=== PATIENT | male | born 1945 | race Caucasian/White ===

== ENCOUNTER → 2019-08-06 11:52 | Outpatient (CLI) | payer MEDICARE, OTHER, SELFPAY ==
[2019-08-06 12:18] LABS: Add Manual Diff / Slide Review NO; Basophils Absolute Auto 0 /uL (0-100); Basophils Percent Auto 0.5 % (0-2); Eosinophils Absolute Auto 200 /uL (0-450); Eosinophils Percent Auto 3.4 % (2-4); Hematocrit 42.2 % (41-53); Hemoglobin 14.3 g/dL (13.5-17.5); Lymphocytes Absolute Auto 1500 /uL (1100-4500); Lymphocytes Percent Auto 32.7 % (25-40); Mean Corpuscular HGB Conc 33.8 % (30-36); Mean Corpuscular Hemoglobin 32.6 PG (26-34); Mean Corpuscular Volume 96.3 fL (80-100); Monocytes Absolute Auto 600 /uL (0-900); Monocytes Percent Auto 13.3 % (3-14); Neutrophils Absolute Auto 2300 /uL (1500-7000); Neutrophils Percent Auto 50.1 % (50-75); Platelet Count 234 X10^3/uL (150-400); Red Blood Cell Count 4.38 X10^6/uL (4.5-5.9); Red Cell Distribution Width 14.7 % (11.6-14.8); White Blood Cell Count 4.6 X10^3/uL (4.5-11.0)
[2019-08-06 12:56] LABS: Alanine Aminotransferase 35 IU/L (21-72); Albumin 4.2 g/dL (3.5-5.0); Albumin Globulin Ratio 1.5 (1.0-2.8); Alkaline Phosphatase 56 U/L (38-126); Aspartate Aminotransferase 35 IU/L (17-59); BUN Creatinine Ratio 32.5 (6-22); Bilirubin Total 0.5 mg/dL (0.2-1.3); Blood Urea Nitrogen 26 mg/dL (9-20); Calcium 9.2 mg/dL (8.4-10.2); Carbon Dioxide 27 mmol/L (22-32); Chloride 105 mmol/L (98-107); Cholesterol 170 mg/dL (140-199); Estimated Glomerular Filt Rate > 60.0 mL/min (>60); Globulin 2.8 g/dL (1.7-4.1); Glucose 106 mg/dL (80-110); HDL Cholesterol 52 mg/dL (40-60); HEMOLYSIS < 15 (0-50); LDL Cholesterol Calculated 109 mg/dL (<100); Potassium 4.8 mmol/L (3.4-5.1); Sodium 140 mmol/L (137-145); Triglycerides 44 mg/dL (35-150)
== END ==
PROVIDERS: PCP Family Medicine; Visit Provider Family Medicine
DX: E66.9 Obesity, unspecified (principal); K21.9 Gastro-esophageal reflux disease without esophagitis; R73.03 Prediabetes; Z83.3 Family history of diabetes mellitus
CPT/HCPCS: 36415; 80053; 80061; 84443; 85025

== ENCOUNTER → 2019-08-09 09:19 | Outpatient (CLI) | payer MEDICARE, OTHER, SELFPAY ==
[2019-08-09 10:36] LABS: Vitamin B12 592 pg/mL (239-931)
== END ==
PROVIDERS: PCP Family Medicine; Visit Provider Family Medicine
DX: M85.80 Other specified disorders of bone density and structure, unspecified site (principal); E66.9 Obesity, unspecified; R73.03 Prediabetes; Z83.3 Family history of diabetes mellitus
CPT/HCPCS: 82306; 82607

== ENCOUNTER → 2019-12-22 10:31 | Outpatient (CLI) | payer MEDICARE, OTHER, SELFPAY ==
[2019-12-23 14:44] LABS: RPR Screen Non Reactive (Non Reactive)
== END ==
PROVIDERS: PCP Family Medicine; Referring Provider Family Medicine; Visit Provider Family Medicine
DX: G31.84 Mild cognitive impairment of uncertain or unknown etiology (principal); H91.90 Unspecified hearing loss, unspecified ear
CPT/HCPCS: 36415; 83090; 86592

== ENCOUNTER → 2020-03-20 09:58 | Outpatient (CLI) | payer MEDICARE, OTHER, SELFPAY ==
[2020-03-20 11:06] LABS: BUN Creatinine Ratio 18.4 (6-22); Blood Urea Nitrogen 18 mg/dL (9-20); Calcium 9.3 mg/dL (8.4-10.2); Carbon Dioxide 27 mmol/L (22-32); Chloride 106 mmol/L (98-107); Estimated Glomerular Filt Rate > 60.0 mL/min (>60); Glucose 107 mg/dL (80-110); HEMOLYSIS < 15 (0-50); Potassium 4.6 mmol/L (3.4-5.1); Sodium 139 mmol/L (137-145)
[2020-03-21 10:08] LABS: Insulin Level Total 18.5 uIU/mL (2.6-24.9)
== END ==
PROVIDERS: PCP Family Medicine; Referring Provider Family Medicine; Visit Provider Family Medicine
DX: E66.9 Obesity, unspecified (principal); R73.03 Prediabetes; Z83.3 Family history of diabetes mellitus
CPT/HCPCS: 36415; 80048; 83525

== ENCOUNTER → 2021-10-26 11:03 | Outpatient (CLI) | payer MEDICARE, OTHER, SELFPAY ==
[2021-10-26 12:25] LABS: Alanine Aminotransferase 32 IU/L (<50); Albumin Globulin Ratio 1.4 (1.0-2.8); Alkaline Phosphatase 51 U/L (38-126); Aspartate Aminotransferase 33 IU/L (17-59); BUN Creatinine Ratio 24.5 (6-22); Bilirubin Total 0.5 mg/dL (0.2-1.3); Blood Urea Nitrogen 23 mg/dL (9-20); Calcium 9.5 mg/dL (8.4-10.2); Carbon Dioxide 30 mmol/L (22-32); Chloride 105 mmol/L (98-107); Cholesterol 162 mg/dL (140-199); Estimated Glomerular Filt Rate > 60.0 mL/min (>60); Globulin 2.8 g/dL (1.7-4.1); Glucose 114 mg/dL (80-110); HDL Cholesterol 60 mg/dL (40-60); HEMOLYSIS < 15 (0-50); LDL Cholesterol Calculated 92 mg/dL (<100); Potassium 4.5 mmol/L (3.4-5.1); Sodium 140 mmol/L (137-145); Total Protein 6.8 g/dL (6.3-8.2); Triglycerides 48 mg/dL (35-150)
[2021-10-26 12:42] LABS: Vitamin D 25 Hydroxy (D3) 67.7 ng/mL (30.0-100.0)
[2021-10-26 12:56] LABS: TSH w/ Reflex to FT4 1.47 uIU/mL (0.47-4.68)
== END ==
PROVIDERS: PCP Family Medicine; Referring Provider Family Medicine; Visit Provider Family Medicine
DX: E66.9 Obesity, unspecified (principal); I10 Essential (primary) hypertension; R73.03 Prediabetes
CPT/HCPCS: 36415; 80053; 80061; 82306; 84443

== ENCOUNTER → 2021-11-05 09:16 | Outpatient (CLI) | payer MEDICARE, OTHER, SELFPAY ==
--- NOTE | 2021-11-06 09:08 | PM.TREADMILL ---
Cardiac Stress Test Report Referral & Results Date Patient Seen: 11/06/21 Time Patient Seen: 09:00 Requesting provider: Crissy Mathis Indication: Chest discomfort Rest ECG: Normal sinus rhythm Procedure Note: After both written and verbal informed consent the patient had an IV started by the diagnostic imaging RN, and then was hooked up to the treadmill monitoring system. The Lexiscan material, and then the Cardiolite tracer, were administered sequentially. An additional 3 min was spent monitoring the patient while supine on the gurney. The patient had a normal response to all infused materials. Impression: Successful Melva protocol. Perfusion imaging pending. Please note: Actual ECG tracings can be found in the PACS system.
--- NOTE | 2021-11-07 05:33 | DI.NM.S_ITS ---
DATE OF SERVICE: PROCEDURE: Pharmacological perfusion study. DATE OF STUDY: November 05, 2021 INDICATIONS: Chest pain, palpitation, hypertension. RADIOPHARMACEUTICAL: 24.0 millicurie technetium-99m Myoview IV was injected at stress and 24.4 millicurie technetium-99m Myoview IV was injected at rest. CARDIAC STRESS: The patient underwent IV Lexiscan perfusion study under the supervision of an attending staff. The patient remained hemodynamically stable. No significant symptoms. Baseline rhythm was sinus with mild sinus bradycardia. During stress, no convincing ischemic changes seen. No new significant arrhythmias seen. RAW DATA: There is a increased subdiaphragmatic activity. GATED STUDY: Stress LV ejection fraction 82 percent. I do not see any obvious wall motion abnormalities. Resting end-diastolic volume 94 mL. TID ratio 1.27. However, this is a pharmacological perfusion study. Lung/heart ratio 0.29, which is within normal limits. MYOCARDIAL PERFUSION SCAN: There are no prone images. Stress supine and resting supine images were compared to each other. Resting supine images revealed small size, mildly decreased perfusion of basal inferior wall. However, basal inferior wall was normal during stress supine images. However, patient has moderate size, moderate reversible defect involving mid to distal anterior wall extending into the distal anterolateral wall. CONCLUSION: This is an abnormal myocardial perfusion study with moderate reversible ischemia of mid to distal anterior wall extending into the distal anterior lateral wall. Overall preserved left ventricular function. Consider left heart catheterization for further ischemic evaluation and management. findings were reported to Dr. Priec. Lazarus Yanes - TOÑO/ivan/ludin doc#: [id number]/job#: [id number] dd: 11/06/2021 18:03:00 dt: 11/07/2021 05:00:00 DICTATING MD/COPIES TO: Dean Mackay MD; Dr Price COPIES MNE: JAMES; ; Dr Price
== END ==
PROVIDERS: PCP Family Medicine; Referring Provider Family Medicine; Visit Provider Family Medicine
DX: R07.89 Other chest pain (principal); Z20.822 Contact with and (suspected) exposure to COVID-19
CPT/HCPCS: 78452; 87635; 93016; 93017; 93018; C9803; A9502; J2785

== ENCOUNTER → 2021-11-05 11:05 | Outpatient (CLI) | payer MEDICARE, OTHER, SELFPAY ==
[2021-11-05 13:57] LABS: COVID19 -Nasal RAPID Negative (Negative)
== END ==
PROVIDERS: PCP Family Medicine; Referring Provider Family Medicine Sleep Medicine; Visit Provider Family Medicine Sleep Medicine
DX: Z20.822 Contact with and (suspected) exposure to COVID-19 (principal)
CPT/HCPCS: 87635

== ENCOUNTER 2021-11-15 16:59 | Observation (INO) | payer MEDICARE, OTHER, SELFPAY ==
[2021-11-15] VITALS (59 sets, daily range): BP systolic 91–133; BP diastolic 60–90; PULSE 72–147; RESP 17–49; TEMP 36.4; O2SAT 79–99; BMI 33.5
--- NOTE | 2021-11-15 17:13 | DI.RAD.S_ITS ---
PROCEDURE: XR CHEST 1V INDICATIONS: chest pain TECHNIQUE: One view of the chest was acquired. COMPARISON: [facility], , CHEST 2 VIEW, 11/20/2016, 17:34. FINDINGS: Surgical changes and devices: None. Lungs and pleura: Lungs are clear. No pleural effusions or pneumothorax. Mediastinum: Mediastinal contours appear normal. Heart size is enlarged. Bones and chest wall: No suspicious bony lesions. Overlying soft tissues appear unremarkable. IMPRESSION: Cardiomegaly without vascular congestion Approved by: Alex Bernal M.D. on 11/15/2021 at 17:03
[2021-11-15 17:28] LABS: Add Manual Diff / Slide Review NO; Basophils Absolute Auto 0 /uL (0-100); Basophils Percent Auto 0.7 % (0-2); Eosinophils Absolute Auto 100 /uL (0-450); Eosinophils Percent Auto 1.6 % (2-4); Lymphocytes Absolute Auto 1300 /uL (1100-4500); Lymphocytes Percent Auto 25.5 % (25-40); Mean Corpuscular HGB Conc 34.1 % (30-36); Mean Corpuscular Hemoglobin 32.3 PG (26-34); Mean Corpuscular Volume 94.6 fL (80-100); Monocytes Absolute Auto 700 /uL (0-900); Monocytes Percent Auto 13.4 % (3-14); Neutrophils Absolute Auto 3000 /uL (1500-7000); Neutrophils Percent Auto 58.8 % (50-75); Platelet Count 256 X10^3/uL (150-400); Red Blood Cell Count 4.34 X10^6/uL (4.5-5.9); Red Cell Distribution Width 14.5 % (11.6-14.8)
--- NOTE | 2021-11-15 17:35 | ED_ITS ---
HPI - Arrhythmia/Palpitations General Chief Complaint: Arrhythmia/Palpitations Stated Complaint: RAPID HEARTRATE Time Seen by Provider: 11/15/21 17:20 Source: patient Mode of arrival: Ambulatory Limitations: no limitations History of Present Illness HPI narrative: Patient is a 76 year old male. History of high blood pressure. No prior history of arrhythmias. Had a nuclear stress test done last week ordered by his primary doctor. States that he was at the dentist yesterday and was told that his heart rate was elevated. He has no symptoms. He was instructed to come to the emergency department. Related Data Home Medications Medication Instructions Recorded Confirmed doxycycline hyclate 20 mg tablet 20 mg PO Q12H #0 09/18/17 09/14/21 aspirin 325 mg tablet 325 mg PO DAILY 04/09/21 09/14/21 famotidine 20 mg tablet 20 mg PO DAILY 04/09/21 09/14/21 melatonin 5 mg capsule 10 mg PO .HS PRN cap 04/09/21 09/14/21 Previous Rx's Medication Instructions Recorded tamsulosin 0.4 mg capsule 0.8 mg PO DAILY #180 cap 05/23/21 amlodipine 5 mg tablet 5 mg PO DAILY #90 tab 07/27/21 metoprolol succinate 25 mg 25 mg PO DAILY #30 tab 11/07/21 tablet,extended release 24 hr rosuvastatin 5 mg tablet 5 mg PO DAILY #30 tab 11/07/21 Allergies Allergy/AdvReac Type Severity Reaction Status Date / Time No Known Drug Allergies Allergy Verified 11/15/21 17:14 Review of Systems Review of Systems ROS Unobtainable: All systems reviewed & are unremarkable except as noted in HPI and below Constitutional Constitutional: Denies fever(s) and Denies headache(s) ENT Ears, Nose, Mouth, and Throat: Denies headache(s) Cardiovascular Cardiovascular: Denies chest pain, Reports rapid heart rate, Denies lightheadedness and Denies dyspnea Respiratory Respiratory: Denies cough and Denies dyspnea Gastrointestinal Gastrointestinal: Denies abdominal pain, Denies nausea and Denies vomiting Genitourinary Genitourinary: Reports system reviewed and no additional complaints, except as documented Integumentary/Breasts Skin/Breast: Reports system reviewed and no additional complaints, except as documented Neurologic Neurologic: Denies headache(s) Psychiatric Psychiatric: Reports system reviewed and no additional complaints, except as documented Hematologic/Lymphatic On Anticoagulants: No 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) Elevated PSA Gastroesophageal reflux disease (09/13/16) Lumbosacral radiculopathy at L5 (09/13/16) Mild cognitive impairment Obstructive sleep apnea syndrome (09/26/17) Osteopenia Prostate cancer Surgical History (Updated 02/10/18 @ 06:11 by Conversion Provider) Status post tonsillectomy and adenoidectomy Family History (Updated 12/28/19 @ 17:54 by Crissy Mathis DO) Sister Type 1 diabetes Social History Smoking Status: Never smoker Smoking Status: Never smoker alcohol intake frequency: holidays/special occasions only Substance Use Type: does not use Exam Initial Vital Signs Initial Vital Signs: Vital Signs Pulse Rate 146 H 11/15/21 17:09 Respiratory Rate 29 H 11/15/21 17:09 Pulse Oximetry 98 11/15/21 17:09 Const General: cooperative, healthy appearing and comfortable HENWA Head: normal to inspection and normocephalic Eyes General: appearance normal, both eyes and all related structures Neck Neck: normal visual inspection Chest Chest: normal inspection of the chest Resp Effort & Inspection: normal respiratory effort Auscultation: clear to auscultation bilaterally Cardio Rate: tachycardic Rhythm: regular rhythm GI Inspection: normal to inspection Skin General: no rashes or lesions noted Neuro General: patient alert, patient awake, patient oriented x3 and moves all extremities Extrem General: normal to inspection and capillary refill normal Psych Appearance: grossly normal and well kempt Scores GCS Dustin coma scale eye opening: Spontaneous [place] coma scale verbal response: Orientated [place] coma scale motor response: Obey commands [place] coma scale total score: 15 Course Orders Ordered: ED Orders 11/15/21 17:13 XR chest 1V Stat EKG-12 Lead Stat 11/15/21 17:18 Complete Blood Count AUTO DIFF Stat Comprehensive Metabolic Panel Stat Lipase Stat Magnesium Stat Partial Thromboplastin Time Stat Prothrombin Time INR Stat TSH [Thyroid Stimulating Hormone] Stat Troponin & CK Cardiac Panel Stat Diltiazem HCl 125 mg/ Dextrose 125 mls @ 5 mls/hr IV TITRATE DREW; Protocol Last Titration: 11/15/21 19:15 Dose: 15 mg/hr, 15 mls/hr Documented by: Titration: 11/15/21 18:57 Dose: 10 mg/hr, 10 mls/hr Documented by: Admin: 11/15/21 18:31 Dose: 5 mg/hr, 5 mls/hr Documented by: PIPE Discontinued Medications Diltiazem HCl (Diltiazem 5 Mg/Ml Sdv) 10 mg IV NOW ONE Stop: 11/15/21 18:26 Last Admin: 11/15/21 18:31 Dose: 10 mg Documented by: PIPE Metoprolol Tartrate (Metoprolol Tartrate 5 Mg/5 Ml Inj) 5 mg IV NOW ONE Stop: 11/15/21 17:37 Last Admin: 11/15/21 17:48 Dose: 5 mg Documented by: [place] Vital Signs Vital signs: Vital Signs - 8 hr 11/15/21 17:09 11/15/21 17:10 11/15/21 17:14 Temperature 97.6 F Pulse Rate 146 H 147 H 147 H Respiratory Rate 29 H 21 20 Blood Pressure 114/67 114/67 Pulse Oximetry 98 98 99 11/15/21 17:30 11/15/21 17:31 11/15/21 18:00 Temperature Pulse Rate 146 H 146 H 141 H Respiratory Rate 25 H 28 H 27 H Blood Pressure 132/75 107/80 Pulse Oximetry 96 96 97 11/15/21 18:15 11/15/21 18:30 11/15/21 18:33 Temperature Pulse Rate 140 H 140 H 140 H Respiratory Rate 23 25 H 26 H Blood Pressure 110/78 109/78 117/76 Pulse Oximetry 95 96 97 11/15/21 18:45 11/15/21 19:00 11/15/21 19:05 Temperature Pulse Rate 140 H 140 H 141 H Respiratory Rate 24 22 25 H Blood Pressure 109/73 113/73 Pulse Oximetry 96 94 96 11/15/21 19:06 11/15/21 19:10 11/15/21 19:15 Temperature Pulse Rate 141 H 141 H 141 H Respiratory Rate 27 H 25 H 28 H Blood Pressure 107/70 111/73 115/76 Pulse Oximetry 96 95 95 MDM - Arrhythmia/Palpitations Lab Data Result diagrams: 11/15/21 17:18 11/15/21 17:18 Labs: Lab Results 11/15/21 11/15/21 11/15/21 Range/Units 17:18 17:18 17:18 WBC 5.0 (4.5-11.0) X10^3/uL RBC 4.34 L (4.5-5.9) X10^6/uL Hgb 14.0 (13.5-17.5) g/dL Hct 41.0 (41-53) % MCV 94.6 (80-100) fL MCH 32.3 (26-34) PG MCHC 34.1 (30-36) % RDW 14.5 (11.6-14.8) % Plt Count 256 (150-400) X10^3/uL Neut % (Auto) 58.8 (50-75) % Lymph % (Auto) 25.5 (25-40) % [place] % (Auto) 13.4 (3-14) % Eos % (Auto) 1.6 L (2-4) % Baso % (Auto) 0.7 (0-2) % Neut # (Auto) 3000 (3910-2218) /uL Lymph # (Auto) 1300 (4339-2542) /uL [place] # (Auto) 700 (0-900) /uL Eos # (Auto) 100 (0-450) /uL Baso # (Auto) 0 (0-100) /uL PT 12.3 (10.1-12.7) SECONDS INR 1.1 (0.9-1.3) APTT 32 (26.4-36.2) SECONDS Sodium 141 (137-145) mmol/L Potassium 4.3 (3.4-5.1) mmol/L Chloride 109 H (98-107) mmol/L Carbon Dioxide 27 (22-32) mmol/L BUN 22 H (9-20) mg/dL Creatinine 0.93 (0.66-1.25) mg/dL Estimated GFR > 60.0 (>60) mL/min BUN/Creatinine Ratio 23.7 H (6-22) Glucose 110 (80-110) mg/dL Calcium 9.5 (8.4-10.2) mg/dL Magnesium 2.0 (1.6-2.3) mg/dL Total Bilirubin 0.4 (0.2-1.3) mg/dL AST 32 (17-59) IU/L ALT 30 (<50) IU/L Alkaline Phosphatase 51 (38-126) U/L Total Creatine Kinase 128 (55-170) U/L CK-MB (CK-2) 3.22 H (<2.37) ng/mL CK-MB (CK-2) Rel Index 2.5 (1.5-5.0) % Troponin I 0.073 H (0.01-0.034) ng/mL Total Protein 7.2 (6.3-8.2) g/dL Albumin 4.1 (3.5-5.0) g/dL Globulin 3.1 (1.7-4.1) g/dL Albumin/Globulin Ratio 1.3 (1.0-2.8) Lipase 96 (23-300) U/L Imaging Data Chest x-ray: Radiologist's Impresson: [address] [address] XRay Report Signed Patient: Lazarus Yanes MR#: [id number] : 1945 Acct:[id number] Age/Sex: 76 / M Date of Service: 11/15/21 Loc: ED Accession Number: [id number] ?? Procedure: XR chest 1V Ordering Provider: Nabil Alexander D.O. PROCEDURE:? XR CHEST 1V ? INDICATIONS:? chest pain ? TECHNIQUE:? One view of the chest was acquired.? ? COMPARISON:? [facility], , CHEST 2 VIEW, 11/20/2016, 17:34. ? FINDINGS:? ? Surgical changes and devices:? None.? ? Lungs and pleura:? Lungs are clear.? No pleural effusions or pneumothorax.? ? Mediastinum:? Mediastinal contours appear normal.? Heart size is enlarged.? ? Bones and chest wall:? No suspicious bony lesions.? Overlying soft tissues appear unremarkable.? ? IMPRESSION:? ? Cardiomegaly without vascular congestion ? ? ? Approved by: Alex Bernal M.D. on 11/15/2021 at 17:03? ECG Data Attestation: I personally reviewed and interpreted this ECG as follows: Interpretation: A flutter Ventricular rate 148 Normal axis Normal QRS Normal QTC Nonspecific ST T wave changes MDM Narrative Medical decision making narrative: Patient not on anticoagulation. Had a nuclear stress test done 1 week ago the did not show any signs of AFib/flutter. Patient has no symptoms. Not a candidate for cardioversion. EKG consistent with a flutter with 2-1 block. Patient was given metoprolol without any improvement of heart rate. Was started on a diltiazem drip with minimal if any improvement as well. Discussed case with hospitalist. Will need to admit for rate control. Discussed this with the patient as well. He expressed understanding agreement. Critical Care Time Critical Care Time Critical Care Time: Yes Total Critical Care Time: 35 Attestation: The high probability of a clinically significant, sudden or life threatening deterioration of the cardiovascular system(s) required my full and direct attention, intervention and personal management. The aggregate critical care time was [35 minutes. This time is in addition to time spent performing reported procedures but includes the following: [x] Data Review and interpretation [x] Patient assessment and monitoring of vital signs [x] Documentation [x] Medication orders and management Discharge Plan Departure Patient Disposition: Admitted As Inpatient Clinical Impression: Atrial flutter with rapid ventricular response
[2021-11-15 17:36] LABS: INR 1.1 (0.9-1.3); Prothrombin Time 12.3 SECONDS (10.1-12.7)
[2021-11-15 17:39] LABS: PTT Partial Thromboplastin Tim 32 SECONDS (26.4-36.2)
[2021-11-15 17:41] LABS: Alanine Aminotransferase 30 IU/L (<50); Albumin 4.1 g/dL (3.5-5.0); Albumin Globulin Ratio 1.3 (1.0-2.8); Alkaline Phosphatase 51 U/L (38-126); Aspartate Aminotransferase 32 IU/L (17-59); BUN Creatinine Ratio 23.7 (6-22); Bilirubin Total 0.4 mg/dL (0.2-1.3); Blood Urea Nitrogen 22 mg/dL (9-20); Calcium 9.5 mg/dL (8.4-10.2); Carbon Dioxide 27 mmol/L (22-32); Chloride 109 mmol/L (98-107); Creatine Kinase 128 U/L (55-170); Estimated Glomerular Filt Rate > 60.0 mL/min (>60); Globulin 3.1 g/dL (1.7-4.1); Glucose 110 mg/dL (80-110); HEMOLYSIS < 15 (0-50); Lipase 96 U/L (23-300); Potassium 4.3 mmol/L (3.4-5.1); Sodium 141 mmol/L (137-145); Total Protein 7.2 g/dL (6.3-8.2)
[2021-11-15] MEDS: METOPROLOL TARTRATE 5 MG/5 ML INJ IV ×2 (17:48→21:24)
[2021-11-15 17:52] LABS: Troponin I 0.073 ng/mL (0.01-0.034)
[2021-11-15 17:56] LABS: CKMB % Relative Index 2.5 % (1.5-5.0); Creatine Kinase MB 3.22 ng/mL (<2.37)
[2021-11-15] MEDS: dilTIAZem 5 MG/ML SDV 10 MG IV (18:31)
[2021-11-15] MEDS: dilTIAZem 125 MG in DEXTROSE 5 % IN WATER 100 ML IV (18:31)
[2021-11-15 20:21] LABS: Thyroid Stimulating Hormone 2.22 uIU/mL (0.47-4.68)
[2021-11-15 20:27] LABS: COVID19 -Nasal RAPID Negative (Negative)
--- NOTE | 2021-11-15 20:36 | P.HP_ITS ---
History of Present Illness History of Present Illness Date Patient Seen: 11/15/21 Time Patient Seen: 20:30 Chief complaint: RAPID HEARTRATE Narrative: Mr. Yanes is a 76M with PMH HTN, BPH who presents with tachycardia. He has recently noted being more fatigued and short of breath than usual. He has had an outpatient stress test that was abnormal and he has been referred to cardiology for consideration of angiogram. He states he was at the dentist yesterday and was told he was tachycardic. He denies feeling chest pain, shortness of breath, palpitations, dizziness, or any other symptoms. He was recommended to come to the ED. He decided to come today. In the ED workup was done, he was noted to have a heart rate in the 140s, respiratory rate in the 20s. EKG showed atrial flutter with 2:1 conduction. Labs notable for WBC 5.0, creatinine 0.93. INR 1.1. Troponin 0.073. Chest xray showed cardiomegaly. He was given metoprolol with no improvement in his heart rate. He was started on diltiazem and the drip was increased to 15mg/hr and he was admitted for further treatment. 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) Elevated PSA Gastroesophageal reflux disease (09/13/16) Lumbosacral radiculopathy at L5 (09/13/16) Mild cognitive impairment Obstructive sleep apnea syndrome (09/26/17) Osteopenia Prostate cancer Surgical History Status post tonsillectomy and adenoidectomy Family & Social History Family History Sister Type 1 diabetes Safety & Behavioral: Feels Safe in Current Yes Environment Been Physically Hurt or No Threatened By a Person Tobacco & Substance use: Smoking Status Never smoker alcohol intake frequency holiday/special occasion Substance Use Type does not use Meds Home Medications and Allergies Home Medications Medication Instructions Recorded Confirmed Type doxycycline hyclate 20 mg tablet 20 mg PO Q12H #0 09/18/17 09/14/21 History aspirin 325 mg tablet 325 mg PO DAILY 04/09/21 09/14/21 History famotidine 20 mg tablet 20 mg PO DAILY 04/09/21 09/14/21 History melatonin 5 mg capsule 10 mg PO .HS PRN cap 04/09/21 09/14/21 History tamsulosin 0.4 mg capsule 0.8 mg PO DAILY #180 cap 05/23/21 09/14/21 Rx amlodipine 5 mg tablet 5 mg PO DAILY #90 tab 07/27/21 09/14/21 Rx metoprolol succinate 25 mg 25 mg PO DAILY #30 tab 11/07/21 11/07/21 Rx tablet,extended release 24 hr rosuvastatin 5 mg tablet 5 mg PO DAILY #30 tab 11/07/21 11/07/21 Rx Allergies Allergy/AdvReac Type Severity Reaction Status Date / Time No Known Drug Allergies Allergy Verified 11/15/21 17:14 Review of Systems Review of Systems Narrative: 14 systems reviewed and negative aside from HPI Exam Vital Signs (past 8 hours): - 11/15/21 18:45 11/15/21 19:00 11/15/21 19:05 Pulse Rate 140 H 140 H 141 H Respiratory Rate 24 22 25 H Blood Pressure 109/73 113/73 Pulse Oximetry 96 94 96 11/15/21 19:06 11/15/21 19:10 11/15/21 19:15 Pulse Rate 141 H 141 H 141 H Respiratory Rate 27 H 25 H 28 H Blood Pressure 107/70 111/73 115/76 Pulse Oximetry 96 95 95 11/15/21 19:20 11/15/21 19:25 11/15/21 19:30 Pulse Rate 141 H 141 H 142 H Respiratory Rate 29 H 22 23 Blood Pressure 115/74 104/74 108/70 Pulse Oximetry 97 96 96 11/15/21 19:35 11/15/21 19:40 11/15/21 19:45 Pulse Rate 141 H 141 H 142 H Respiratory Rate 26 H 23 22 Blood Pressure 110/73 110/78 113/71 Pulse Oximetry 97 97 96 11/15/21 19:50 11/15/21 19:55 11/15/21 20:00 Pulse Rate 142 H 141 H 140 H Respiratory Rate 25 H 26 H 31 H Blood Pressure 105/60 93/61 118/73 Pulse Oximetry 96 96 97 11/15/21 20:05 11/15/21 20:10 11/15/21 20:15 Pulse Rate 140 H 141 H 140 H Respiratory Rate 23 38 H 23 Blood Pressure 102/70 91/69 101/65 Pulse Oximetry 98 98 99 11/15/21 20:20 11/15/21 20:25 11/15/21 20:30 Pulse Rate 140 H 140 H 143 H Respiratory Rate 30 H 28 H 32 H Blood Pressure 110/68 118/68 128/87 Pulse Oximetry 79 L 98 99 11/15/21 20:35 11/15/21 20:48 11/15/21 20:50 Pulse Rate 145 H 145 H 144 H Respiratory Rate 36 H 31 H 28 H Blood Pressure 133/90 Pulse Oximetry 99 96 98 11/15/21 20:55 11/15/21 21:00 11/15/21 21:05 Pulse Rate 144 H 141 H 141 H Respiratory Rate 31 H 29 H 30 H Blood Pressure Pulse Oximetry 98 98 97 11/15/21 21:10 11/15/21 21:15 11/15/21 21:20 Pulse Rate 141 H 141 H 142 H Respiratory Rate 24 22 22 Blood Pressure Pulse Oximetry 97 95 96 11/15/21 21:25 11/15/21 21:30 11/15/21 21:35 Pulse Rate 142 H 138 H 136 H Respiratory Rate 24 23 49 H Blood Pressure Pulse Oximetry 95 96 94 11/15/21 21:42 11/15/21 21:45 11/15/21 21:50 Pulse Rate 137 H 137 H 137 H Respiratory Rate 26 H 23 Blood Pressure Pulse Oximetry 96 94 11/15/21 21:55 11/15/21 22:00 11/15/21 22:05 Pulse Rate 132 H 95 H 112 H Respiratory Rate 23 22 23 Blood Pressure 118/68 Pulse Oximetry 94 94 94 11/15/21 22:10 11/15/21 22:15 11/15/21 22:20 Pulse Rate 126 H 129 H 77 Respiratory Rate 35 H 36 H 24 Blood Pressure Pulse Oximetry 95 95 94 11/15/21 22:25 11/15/21 22:30 11/15/21 22:35 Pulse Rate 73 77 74 Respiratory Rate 23 20 17 Blood Pressure Pulse Oximetry 95 94 94 11/15/21 22:40 11/15/21 22:45 11/15/21 22:50 Pulse Rate 73 75 74 Respiratory Rate 20 20 22 Blood Pressure Pulse Oximetry 93 94 94 11/15/21 22:55 11/15/21 23:00 11/16/21 00:00 Pulse Rate 72 76 74 Respiratory Rate 27 H 21 19 Blood Pressure 123/67 Pulse Oximetry 95 95 94 11/16/21 00:04 11/16/21 01:00 Pulse Rate 72 73 Respiratory Rate 21 Blood Pressure 105/57 L Pulse Oximetry 93 Oxygen Delivery Method Room Air Narrative Exam Narrative: GEN: no acute distress HEENT: moist mucous membranes, PERRL NECK: trachea midline, no JVD CV: tachycardic, no murmurs PULM: clear bilaterally, no wheezes, rhonchi, rales ABD: soft, nontender, nondistended, no organomegaly EXT: warm and well perfused with no edema SKIN: no rashes noted NEURO: awake, alert, oriented, no focal deficits Objective Labs Result Diagrams: 11/15/21 17:18 11/15/21 17:18 Labs: Laboratory Results - last 24 hr 11/15/21 11/15/21 11/15/21 17:18 17:18 17:18 WBC 5.0 RBC 4.34 L Hgb 14.0 Hct 41.0 MCV 94.6 MCH 32.3 MCHC 34.1 RDW 14.5 Plt Count 256 Neut % (Auto) 58.8 Lymph % (Auto) 25.5 [place] % (Auto) 13.4 Eos % (Auto) 1.6 L Baso % (Auto) 0.7 Neut # (Auto) 3000 Lymph # (Auto) 1300 [place] # (Auto) 700 Eos # (Auto) 100 Baso # (Auto) 0 PT 12.3 INR 1.1 APTT 32 Sodium 141 Potassium 4.3 Chloride 109 H Carbon Dioxide 27 BUN 22 H Creatinine 0.93 Estimated GFR > 60.0 BUN/Creatinine Ratio 23.7 H Glucose 110 Calcium 9.5 Magnesium 2.0 Total Bilirubin 0.4 AST 32 ALT 30 Alkaline Phosphatase 51 Total Creatine Kinase 128 CK-MB (CK-2) 3.22 H CK-MB (CK-2) Rel Index 2.5 Troponin I 0.073 H NT-Pro-B Natriuret Pep Total Protein 7.2 Albumin 4.1 Globulin 3.1 Albumin/Globulin Ratio 1.3 Lipase 96 TSH SARS-CoV-2 (PCR) 11/15/21 11/15/21 11/15/21 17:18 17:18 20:08 WBC RBC Hgb Hct MCV MCH MCHC RDW Plt Count Neut % (Auto) Lymph % (Auto) [place] % (Auto) Eos % (Auto) Baso % (Auto) Neut # (Auto) Lymph # (Auto) [place] # (Auto) Eos # (Auto) Baso # (Auto) PT INR APTT Sodium Potassium Chloride Carbon Dioxide BUN Creatinine Estimated GFR BUN/Creatinine Ratio Glucose Calcium Magnesium Total Bilirubin AST ALT Alkaline Phosphatase Total Creatine Kinase CK-MB (CK-2) CK-MB (CK-2) Rel Index Troponin I NT-Pro-B Natriuret Pep 561 H Total Protein Albumin Globulin Albumin/Globulin Ratio Lipase TSH 2.22 SARS-CoV-2 (PCR) Negative 11/15/21 23:00 WBC RBC Hgb Hct MCV MCH MCHC RDW Plt Count Neut % (Auto) Lymph % (Auto) [place] % (Auto) Eos % (Auto) Baso % (Auto) Neut # (Auto) Lymph # (Auto) [place] # (Auto) Eos # (Auto) Baso # (Auto) PT INR APTT Sodium Potassium Chloride Carbon Dioxide BUN Creatinine Estimated GFR BUN/Creatinine Ratio Glucose Calcium Magnesium Total Bilirubin AST ALT Alkaline Phosphatase Total Creatine Kinase CK-MB (CK-2) CK-MB (CK-2) Rel Index Troponin I 0.082 H NT-Pro-B Natriuret Pep Total Protein Albumin Globulin Albumin/Globulin Ratio Lipase TSH SARS-CoV-2 (PCR) Assessment & Plan Assessment & Plan narrative: Mr. Yanes is a 76M with presents with atrial flutter with rapid ventricular response. 1. Atrial flutter with rapid ventricular response, acute -patient largely asymptomatic -rate improved with IV diltiazem and IV metoprolol -presented in 2:1 aflutter, on IV dilt gtt is now in variable block -ECHO ordered -goal is heart rate below 110 -ordered for lovenox for anticoagulation -TSH normal -chest xray showed no infection -with improved rate will attempt to transition to oral medications 2. Cardiac demand ischemia, acute -troponin initially 0.07 -patient with no chest pain or shortness of breath -trend troponins -already on lovenox as above -ordered for atorvastatin 40mg daily -recently had abnormal stress test and has follow up later this month for angiogram 3. Hypertension -hold amlodipine as on diltiazem 4. BPH -continue tamsulosin 5. GERD -continue famotidine CODE: Full Proxy: Donnaroe Yanes, spouse I have utilized all available resources to reconcile patient's home medications Time Spent With Patient Critical Care time: I spent a total of [] minutes of critical care time on this patient's care today; this time is exclusive of procedural time. Quality MIPS - Admit I confirm the patient?s Advance Care Plan is present, Code status is documented, Surrogate decision maker is in patient?s record [If Yes, STOP here]: Yes
--- NOTE | 2021-11-15 20:46 | DI.ECHO.S_ITS ---
[facility] +---------+ : : [address] : : : : [id number] : : : : Phone: [phone]+ Echocardiogram Report + + :Name: TONIO BARROSO Study Date: 11/16/2021 Height: 71 in : :[facility] ReadingLocation: Weight: 240 lb: : Gender: Male BSA: 2.3 m2 : :: 1945 Age: 76 yrs BP: 97/60 mmHg: :Reason For Study: Arrhythmia, Atrial Flutter : :Ordering Physician: PARMINDER, : :KARINE Performed By: Asa Truong : :Referring: KARINE ZURITA : + + Interpretation Summary The study quality was technically difficult. A contrast injection of Definity was performed to improve assessment of LV function. Left ventricular ejection fraction is estimated to be 50 +/- 5%. There are no obvious focal wall motion abnormalities noted but poor endocardial definition reduces the sensitivity for the detection of such. There is no significant valvular heart disease. Procedure: A two-dimensional transthoracic echocardiogram with color flow and Doppler was performed. The study quality was technically difficult. Most of the acoustic windows were suboptimal, but the best imaging was obtained from the parasternal window. The subcostal views were difficult to obtain and are suboptimal in quality. There is no prior echocardiogram noted for this patient. A contrast injection of Definity was performed to improve assessment of LV function. The patient was in atrial flutter with heart rates between 58 - 77 bpm during the exam. Left Ventricle: The left ventricle is normal in size and wall thickness. Left ventricular ejection fraction is estimated to be 50 +/- 5%. There are no obvious focal wall motion abnormalities noted but poor endocardial definition reduces the sensitivity for the detection of such. Right Ventricle: The right ventricle is mildly dilated. The right ventricular systolic function is normal. Atria: Both atria are normal in size. Mitral Valve: The mitral valve is normal. There is trace mitral regurgitation. Aortic Valve: The aortic valve is trileaflet. The aortic valve opens well. The aortic valve is slightly calcified. No aortic regurgitation is present. Tricuspid Valve: The tricuspid valve is normal. There is mild tricuspid regurgitation. Right ventricular systolic pressure is estimated to be 17 mmHg plus the clinically estimated CVP which cannot be estimated on this exam. Pulmonic Valve: The pulmonic valve is not well seen, but is grossly normal. Great Vessels: The aortic root is normal size. The ascending aorta is at the upper limits of normal in size. The aortic arch is at the upper limits of normal in size. The inferior vena cava was not visualized. Pericardium/ Pleura There is no pericardial effusion. There is an anterior echo-free space consistent with a fat pad. There is no pleural effusion. MMode/2D Measurements & Calculations LVIDd: 4.1 cm LVOT diam: 1.7 cm LVIDs: 2.5 cm Ao root diam: 3.0 cm FS: 38.6 % asc Aorta Diam: 3.6 cm IVSd: 0.91 cm Ao Arch Diam (Prox Trans): 3.3 cm LVPWd: 0.98 cm LV graham. diameter/BSA (cm/m^2): 1.8 LV sys. diameter/BSA (cm/m^2): 1.1 LA A2 area: 17.0 cm2 RA long axis: 5.3 cm LA A4 area: 23.2 cm2 RA area: 17.9 cm2 LA length (vol): 7.0 cm RA vol: 51.1 ml LA vol: 47.4 ml RA : 22.4 ml/m2 LA vol index: 20.8 ml/m2 TAPSE: 2.1 cm Doppler Measurements & Calculations Ao V2 max: 151.9 cm/sec LVOT Max Guero: 95.7 cm/sec Ao V2 mean: 116.5 cm/sec LV V1 max P.7 mmHg Ao max P.2 mmHg LV V1 VTI: 19.7 cm Ao mean P.7 mmHg ANDREA(I,D): 1.5 cm2 Ao V2 VTI: 31.3 cm ANDREA(V,D): 1.5 cm2 sev ratio: 0.63 ANDREA indexed to BSA (cm^2/m^2): 0.66 MV E max guero: 123.3 cm/sec TR max guero: 207.2 cm/sec MV A max guero: 44.5 cm/sec TR max P.2 mmHg MV E/A: 2.8 Med Peak E' Guero: 11.9 cm/sec E/E' med: 10.4 Lat Peak E' Guero: 13.5 cm/sec E/E' lat: 9.2 E/e' average: 9.8 MV dec time: 0.14 sec SV(LVOT): 46.8 ml Reading Physician:11:56 AM
[2021-11-15] MEDS: ATORVASTATIN 20 MG TABLET 40 MG PO (21:29)
[2021-11-15] MEDS: ENOXAPARIN 150 MG/ML SYRINGE 110 MG SUBCUT (21:30)
[2021-11-15 21:39] LABS: NT-proBNP (BNP-Adult 18+) 561 pg/mL (<450)
[2021-11-15 23:30] LABS: Troponin I 0.082 ng/mL (0.01-0.034)
[2021-11-16] VITALS (38 sets, daily range): BP systolic 97–143; BP diastolic 57–85; PULSE 60–146; RESP 17–25; TEMP 35.8–36.4; O2SAT 93–99; BMI 33.5; BMI 33.9
[2021-11-16] MEDS: dilTIAZem 30 MG TABLET 90 MG PO ×2 (00:04→06:10)
[2021-11-16] MEDS: METOPROLOL TARTRATE 5 MG/5 ML INJ IV (02:47)
[2021-11-16] MEDS: dilTIAZem 125 MG in DEXTROSE 5 % IN WATER 100 ML 6 ML IV (02:47)
--- NOTE | 2021-11-16 03:33 | PC.NURSE ---
Pt sitting at bedside. Used the urinal without assistance. Pt is conversing well and is very pleasant. No needs or concerns at this time.
[2021-11-16 05:48] LABS: Add Manual Diff / Slide Review NO; Basophils Absolute Auto 0 /uL (0-100); Basophils Percent Auto 0.6 % (0-2); Eosinophils Absolute Auto 100 /uL (0-450); Eosinophils Percent Auto 2.5 % (2-4); Hematocrit 39.8 % (41-53); Hemoglobin 13.8 g/dL (13.5-17.5); Lymphocytes Absolute Auto 1300 /uL (1100-4500); Lymphocytes Percent Auto 23.3 % (25-40); Mean Corpuscular HGB Conc 34.6 % (30-36); Mean Corpuscular Hemoglobin 32.6 PG (26-34); Mean Corpuscular Volume 94.5 fL (80-100); Monocytes Absolute Auto 700 /uL (0-900); Monocytes Percent Auto 12.1 % (3-14); Neutrophils Absolute Auto 3500 /uL (1500-7000); Neutrophils Percent Auto 61.5 % (50-75); Platelet Count 231 X10^3/uL (150-400); Red Blood Cell Count 4.21 X10^6/uL (4.5-5.9); Red Cell Distribution Width 14.6 % (11.6-14.8); White Blood Cell Count 5.7 X10^3/uL (4.5-11.0)
[2021-11-16 05:55] LABS: BUN Creatinine Ratio 20.2 (6-22); Blood Urea Nitrogen 17 mg/dL (9-20); Calcium 8.9 mg/dL (8.4-10.2); Carbon Dioxide 31 mmol/L (22-32); Chloride 107 mmol/L (98-107); Estimated Glomerular Filt Rate > 60.0 mL/min (>60); Glucose 107 mg/dL (80-110); HEMOLYSIS < 15 (0-50); Potassium 4.1 mmol/L (3.4-5.1); Sodium 140 mmol/L (137-145)
[2021-11-16 06:07] LABS: Troponin I 0.077 ng/mL (0.01-0.034)
[2021-11-16] MEDS: METOPROLOL ER 25 MG TABLET PO ×2 (06:22→08:12)
--- NOTE | 2021-11-16 06:22 | PC.NURSE ---
With minor activities pt's hr will be in the 140's. Dr. Sahni notified
[2021-11-16] MEDS: TAMSULOSIN 0.4 MG CAPSULE PO (08:14)
[2021-11-16] MEDS: FAMOTIDINE 20 MG TABLET PO (08:14)
[2021-11-16] MEDS: APIXABAN 5 MG TABLET PO ×2 (08:14→20:18)
[2021-11-16] MEDS: dilTIAZem CD 180 MG CAP 360 MG PO (08:14)
--- NOTE | 2021-11-16 09:39 | PM.PN.1 ---
Subjective Subjective Date Patient Seen: 11/16/21 Time Patient Seen: 08:00 Interval history: He continues to deny any chest pain, shortness of breath or palpitations. Overnight he was transitioned off the diltiazem drip and started on oral diltiazem and oral metoprolol. At rest his heart is primarily in the 70s in apparent 4:1 atrial flutter, though EKG also shows instances of variable block. With activity his heart rate increases to the 140s in 2:1 atrial flutter. Exam Vital Signs (past 8 hours): - 11/16/21 02:00 11/16/21 02:54 11/16/21 03:00 Pulse Rate 72 72 80 Respiratory Rate 20 24 20 Blood Pressure 109/62 116/62 Pulse Oximetry 94 96 94 11/16/21 03:01 11/16/21 03:15 11/16/21 03:30 Pulse Rate 79 72 70 Respiratory Rate 22 21 Blood Pressure 104/57 L 102/64 105/60 Pulse Oximetry 95 94 94 11/16/21 03:45 11/16/21 04:00 11/16/21 04:15 Pulse Rate 71 71 71 Respiratory Rate 24 22 23 Blood Pressure 110/64 116/62 143/63 H Pulse Oximetry 95 95 94 11/16/21 04:30 11/16/21 05:00 11/16/21 06:00 Pulse Rate 75 72 76 Respiratory Rate 22 25 H 20 Blood Pressure 118/58 L 115/62 117/64 Pulse Oximetry 94 94 95 11/16/21 07:00 11/16/21 07:27 11/16/21 07:28 Pulse Rate 143 H 140 H 140 H Respiratory Rate 20 20 Blood Pressure 119/73 119/77 Pulse Oximetry 93 98 11/16/21 08:12 Pulse Rate 122 H Respiratory Rate Blood Pressure 132/77 Pulse Oximetry Oxygen Delivery Method Room Air Narrative Exam Narrative: GEN: no acute distress HEENT: moist mucous membranes, PERRL NECK: trachea midline, no JVD CV: tachycardic, no murmurs PULM: clear bilaterally, no wheezes, rhonchi, rales, work of breathing appears easier ABD: soft, nontender, nondistended, no organomegaly EXT: warm and well perfused with no edema SKIN: no rashes noted NEURO: awake, alert, oriented, no focal deficits Objective Labs Result Diagrams: 11/16/21 05:35 11/16/21 05:35 Labs: Laboratory Results - last 24 hr 11/15/21 11/15/21 11/15/21 17:18 17:18 17:18 WBC 5.0 RBC 4.34 L Hgb 14.0 Hct 41.0 MCV 94.6 MCH 32.3 MCHC 34.1 RDW 14.5 Plt Count 256 Neut % (Auto) 58.8 Lymph % (Auto) 25.5 [place] % (Auto) 13.4 Eos % (Auto) 1.6 L Baso % (Auto) 0.7 Neut # (Auto) 3000 Lymph # (Auto) 1300 [place] # (Auto) 700 Eos # (Auto) 100 Baso # (Auto) 0 PT 12.3 INR 1.1 APTT 32 Sodium 141 Potassium 4.3 Chloride 109 H Carbon Dioxide 27 BUN 22 H Creatinine 0.93 Estimated GFR > 60.0 BUN/Creatinine Ratio 23.7 H Glucose 110 Calcium 9.5 Magnesium 2.0 Total Bilirubin 0.4 AST 32 ALT 30 Alkaline Phosphatase 51 Total Creatine Kinase 128 CK-MB (CK-2) 3.22 H CK-MB (CK-2) Rel Index 2.5 Troponin I 0.073 H NT-Pro-B Natriuret Pep Total Protein 7.2 Albumin 4.1 Globulin 3.1 Albumin/Globulin Ratio 1.3 Lipase 96 TSH SARS-CoV-2 (PCR) 11/15/21 11/15/21 11/15/21 17:18 17:18 20:08 WBC RBC Hgb Hct MCV MCH MCHC RDW Plt Count Neut % (Auto) Lymph % (Auto) [place] % (Auto) Eos % (Auto) Baso % (Auto) Neut # (Auto) Lymph # (Auto) [place] # (Auto) Eos # (Auto) Baso # (Auto) PT INR APTT Sodium Potassium Chloride Carbon Dioxide BUN Creatinine Estimated GFR BUN/Creatinine Ratio Glucose Calcium Magnesium Total Bilirubin AST ALT Alkaline Phosphatase Total Creatine Kinase CK-MB (CK-2) CK-MB (CK-2) Rel Index Troponin I NT-Pro-B Natriuret Pep 561 H Total Protein Albumin Globulin Albumin/Globulin Ratio Lipase TSH 2.22 SARS-CoV-2 (PCR) Negative 11/15/21 11/16/21 11/16/21 23:00 05:35 05:35 WBC 5.7 RBC 4.21 L Hgb 13.8 Hct 39.8 L MCV 94.5 MCH 32.6 MCHC 34.6 RDW 14.6 Plt Count 231 Neut % (Auto) 61.5 Lymph % (Auto) 23.3 L [place] % (Auto) 12.1 Eos % (Auto) 2.5 Baso % (Auto) 0.6 Neut # (Auto) 3500 Lymph # (Auto) 1300 [place] # (Auto) 700 Eos # (Auto) 100 Baso # (Auto) 0 PT INR APTT Sodium Potassium Chloride Carbon Dioxide BUN Creatinine Estimated GFR BUN/Creatinine Ratio Glucose Calcium Magnesium Total Bilirubin AST ALT Alkaline Phosphatase Total Creatine Kinase CK-MB (CK-2) CK-MB (CK-2) Rel Index Troponin I 0.082 H 0.077 H NT-Pro-B Natriuret Pep Total Protein Albumin Globulin Albumin/Globulin Ratio Lipase TSH SARS-CoV-2 (PCR) 11/16/21 05:35 WBC RBC Hgb Hct MCV MCH MCHC RDW Plt Count Neut % (Auto) Lymph % (Auto) [place] % (Auto) Eos % (Auto) Baso % (Auto) Neut # (Auto) Lymph # (Auto) [place] # (Auto) Eos # (Auto) Baso # (Auto) PT INR APTT Sodium 140 Potassium 4.1 Chloride 107 Carbon Dioxide 31 BUN 17 Creatinine 0.84 Estimated GFR > 60.0 BUN/Creatinine Ratio 20.2 Glucose 107 Calcium 8.9 Magnesium Total Bilirubin AST ALT Alkaline Phosphatase Total Creatine Kinase CK-MB (CK-2) CK-MB (CK-2) Rel Index Troponin I NT-Pro-B Natriuret Pep Total Protein Albumin Globulin Albumin/Globulin Ratio Lipase TSH SARS-CoV-2 (PCR) [facility] Medical History 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 Yanes is a 76M with presents with atrial flutter with rapid ventricular response. 1. Atrial flutter with rapid ventricular response, acute -patient largely asymptomatic -rate improved with IV diltiazem and IV metoprolol -presented in 2:1 aflutter, on IV dilt gtt went to variable block and primarily 4:1 aflutter -dilt gtt down titrated and stopped AM of 11/16 -started on oral diltiazem 360mg daily, and metoprolol 25mg daily -----due to continued tachycardia especially with activity increased metoprolol to 50mg BID XL -ECHO ordered -goal is heart rate below 110 -ordered for lovenox for anticoagulation initially, switch to apixaban -TSH normal -chest xray showed no infection 2. Cardiac demand ischemia, acute -troponin initially 0.07, now downtrending -patient with no chest pain or shortness of breath -already on apixaban as above -ordered for atorvastatin 40mg daily -recently had abnormal stress test and has follow up later this month for angiogram 3. Hypertension -hold amlodipine as on diltiazem 4. BPH -continue tamsulosin 5. GERD -continue famotidine CODE: Full Proxy: Donna Yanes, spouse I have utilized all available resources to reconcile patient's home medications Time Spent With Patient Critical Care time: I spent a total of [] minutes of critical care time on this patient's care today; this time is exclusive of procedural time.
--- NOTE | 2021-11-16 11:04 | PC.NURSE ---
ambulatory independently steady gate HR from 55 to 72, no oxygen required, pulse ox 99%, respiratory rate 18, nad.
[2021-11-16] MEDS: METOPROLOL ER 25 MG TABLET 50 MG PO (20:18)
[2021-11-16] MEDS: ATORVASTATIN 20 MG TABLET 40 MG PO (20:18)
[2021-11-16] MEDS: SODIUM CHLORIDE 0.9% FLUSH 10 ML IV (20:21)
--- NOTE | 2021-11-16 23:08 | PC.NURSE ---
Patient is alert and oriented. Breath sounds CTA with RA sat of 95%. HR irregular w/telemetry reading of afib RVR with rate of 105. Denied nausea. BT present and states he had a small BM earlier today. Voiding per urinal/toilet and urine is clear, hawa; denied dysuria, frequency or urgency. Is independent with mobility. Scabbed abrasions noted on posterior left LE. Denied pain. Fall risk score is low. Dr Larios contacted earlier and changed VS to q4h and discontinued continuous pulse oximetry.
[2021-11-17 00:11] VITALS: BP 107/73; PULSE 73; RESP 17; TEMP 36.2; O2SAT 93
[2021-11-17 05:58] VITALS: BP 111/64; PULSE 69; RESP 17; TEMP 36.4; O2SAT 95
--- NOTE | 2021-11-17 07:15 | PM.PN.1 ---
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 Yanes is a 76M with presents with atrial flutter with rapid ventricular response. 1. Atrial flutter with rapid ventricular response, acute -patient largely asymptomatic -rate improved with IV diltiazem and IV metoprolol -presented in 2:1 aflutter, on IV dilt gtt went to variable block and primarily 4:1 aflutter -dilt gtt down titrated and stopped AM of 11/16 -started on oral diltiazem 360mg daily, and metoprolol 25mg daily -----due to continued tachycardia especially with activity increased metoprolol to 50mg BID XL -ECHO ordered -goal is heart rate below 110 -ordered for lovenox for anticoagulation initially, switch to apixaban -TSH normal -chest xray showed no infection 2. Cardiac demand ischemia, acute -troponin initially 0.07, now downtrending -patient with no chest pain or shortness of breath -already on apixaban as above -ordered for atorvastatin 40mg daily -recently had abnormal stress test and has follow up later this month for angiogram 3. Hypertension -hold amlodipine as on diltiazem 4. BPH -continue tamsulosin 5. GERD -continue famotidine CODE: Senior It Specialist Spent With Patient Critical Care time: I spent a total of [] minutes of critical care time on this patient's care today; this time is exclusive of procedural time. Quality VTE Deep Vein Thrombosis/Pulmonary Embolism Present on Admission: No
[2021-11-17 07:21] LABS: Hematocrit 39.7 % (41-53); Hemoglobin 13.7 g/dL (13.5-17.5); Mean Corpuscular HGB Conc 34.4 % (30-36); Mean Corpuscular Hemoglobin 32.7 PG (26-34); Mean Corpuscular Volume 95.1 fL (80-100); Platelet Count 243 X10^3/uL (150-400); Red Blood Cell Count 4.18 X10^6/uL (4.5-5.9); Red Cell Distribution Width 14.4 % (11.6-14.8); White Blood Cell Count 5.4 X10^3/uL (4.5-11.0)
[2021-11-17 07:28] LABS: BUN Creatinine Ratio 23.6 (6-22); Blood Urea Nitrogen 21 mg/dL (9-20); Calcium 8.8 mg/dL (8.4-10.2); Carbon Dioxide 27 mmol/L (22-32); Chloride 109 mmol/L (98-107); Estimated Glomerular Filt Rate > 60.0 mL/min (>60); Glucose 105 mg/dL (80-110); HEMOLYSIS < 15 (0-50); Potassium 4.1 mmol/L (3.4-5.1); Sodium 140 mmol/L (137-145)
[2021-11-17 08:26] VITALS: BP 119/52; PULSE 62
[2021-11-17] MEDS: SODIUM CHLORIDE 0.9% FLUSH 10 ML IV ×2 (08:26)
[2021-11-17] MEDS: METOPROLOL ER 25 MG TABLET 50 MG PO (08:26)
[2021-11-17] MEDS: APIXABAN 5 MG TABLET PO (08:27)
[2021-11-17] MEDS: TAMSULOSIN 0.4 MG CAPSULE PO (08:27)
[2021-11-17] MEDS: dilTIAZem CD 180 MG CAP 360 MG PO (08:27)
[2021-11-17] MEDS: FAMOTIDINE 20 MG TABLET PO (08:27)
[2021-11-17 09:00] VITALS: BP 119/52; PULSE 63; RESP 18; TEMP 36.2; O2SAT 94
--- NOTE | 2021-11-17 11:55 | PM.DS.1 ---
History of Present Illness History of Present Illness Chief complaint: RAPID HEARTRATE Narrative: Mr. Yanse is a 76M with PMH HTN, BPH who presents with tachycardia. He has recently noted being more fatigued and short of breath than usual. He has had an outpatient stress test that was abnormal and he has been referred to cardiology for consideration of angiogram. He states he was at the dentist yesterday and was told he was tachycardic. He denies feeling chest pain, shortness of breath, palpitations, dizziness, or any other symptoms. He was recommended to come to the ED. He decided to come today. In the ED workup was done, he was noted to have a heart rate in the 140s, respiratory rate in the 20s. EKG showed atrial flutter with 2:1 conduction. Labs notable for WBC 5.0, creatinine 0.93. INR 1.1. Troponin 0.073. Chest xray showed cardiomegaly. He was given metoprolol with no improvement in his heart rate. He was started on diltiazem and the drip was increased to 15mg/hr and he was admitted for further treatment. Discharge Providers Provider Date of admission: 11/15/21 20:00 Discharge Date: 11/17/21 Primary care physician: Crissy Mathis DO Discharge provider: Meg Larios MD Summary Hospital Course Hospital Course: Mr. Yanes is a 76M with presents with atrial flutter with rapid ventricular response. 1. Atrial flutter with rapid ventricular response, acute His heart rate at the time of discharge was irregular but well below 100. He already had Cardiology appointments set up due to a previously abnormal cardiac scan. He was tolerating the diltiazem and metoprolol which will be continued until he sees Cardiology. -patient largely asymptomatic -rate improved with IV diltiazem and IV metoprolol -presented in 2:1 aflutter, on IV dilt gtt went to variable block and primarily 4:1 aflutter -dilt gtt down titrated and stopped AM of 11/16 -started on oral diltiazem 360mg daily, and metoprolol 25mg daily -----due to continued tachycardia especially with activity increased metoprolol to 50mg BID XL -ECHO results were 50 present ejection fraction +/-5% with no valvular disease of significance. -TSH was normal -chest xray showed no infection 2. Cardiac demand ischemia, acute -troponin initially 0.07 -patient with no chest pain or shortness of breath -already on apixaban as above -ordered for atorvastatin 40mg daily -recently had abnormal stress test and has follow up later this month for angiogram with Cardiology at [facility] 3. Hypertension -diltiazem and metoprolol 4. BPH -continue tamsulosin 5. GERD -continue famotidine CODE: Full Status at Discharge Cognitive/behavioral status at discharge: at baseline, oriented Functional status at discharge: independent ambulation Overall status at discharge: patient is back to baseline Time Spent with Patient Time spent: Greater than 30 minutes Exam Vital Signs (past 8 hours): - 11/17/21 05:58 11/17/21 08:26 11/17/21 09:00 Temperature 97.5 F L 97.1 F L Pulse Rate 69 62 63 Respiratory Rate 17 18 Blood Pressure 111/64 119/52 L 119/52 L Pulse Oximetry 95 94 Oxygen Delivery Method Room Air Oxygen Flow Rate 0 Narrative Exam Narrative: He is alert and oriented x3. 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) BPH (benign prostatic hyperplasia) Class 1 obesity (09/13/16) 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 Follow up with Dr. Leon this week as already planned Discharge orders & Medications Prescriptions: New atorvastatin [Lipitor] 20 mg Tablet 40 mg PO BEDTIME Qty: 30 0RF diltiazem HCl [Cardizem CD] 180 mg Capsule,Extended Release 24hr 360 mg PO DAILY Qty: 30 0RF metoprolol succinate 25 mg Tablet Extended Release 24 Hr 50 mg PO BID Qty: 60 0RF Eliquis 5 mg Tablet 5 mg PO BID Qty: 30 0RF Continued doxycycline hyclate 20 MG tablet 20 mg PO Q12H Qty: 0 0RF tamsulosin 0.4 mg capsule 0.8 mg PO DAILY Qty: 180 1RF rosuvastatin 5 mg tablet 5 mg PO DAILY Qty: 30 1RF famotidine 20 mg tablet 20 mg PO DAILY 0RF aspirin 325 mg tablet 325 mg PO DAILY 0RF melatonin 5 mg capsule 10 mg PO .HS PRN (Reason: Sleep) 0RF Discontinued amlodipine 5 mg tablet 5 mg PO DAILY Qty: 90 3RF metoprolol succinate 25 mg tablet extended release 24 hr 25 mg PO DAILY Qty: 30 1RF Follow up/Referrals: Crissy Mathis DO [Primary Care Provider] - Diet/Activity/Treatments Diet: Low-cholesterol Visit Report/Discharge Packet Instructions: Eating a Diet Low in Saturated Fat, Trans Fat, and Cholesterol, Cholesterol-lowering Diet, DI for Atrial Flutter, Metoprolol, Diltiazem, Apixaban Discharge Data Primary Care Provider: Crissy Mathis Attending Provider: Omid Bañuelos VTE Deep Vein Thrombosis/Pulmonary Embolism Present on Admission: No
[2021-11-17 12:13] VITALS: BP 103/66; PULSE 65; RESP 18; TEMP 35.9; O2SAT 93
--- NOTE | 2021-11-17 13:43 | CM.IDA ---
Initial DCP Assessment Note Pt is a 76 yo male, resident of [place], arrives with rapid heart rate, discharged today w/close outpatient f/u recommended PCP: Formerly Dr Mathis, will need to be reassigned Payer: [facility]/ [employer] Reviewed chart, met w/patient to introduce role. Patient lives w/spouse, indp at baseline, states he and his are very active; have lived in [place] for 6 years, prior to that lived in [place] for 29 years. Patient/spouse have no children and no biological family that could be called upon to assist in skilled nursing care planning; this [employer] strongly suggested that patient consider technician terminal and repeater care plan (?) Patient receptive and suggested aging in place with hired in home care givers. Patient denies needs from this [employer]ERSON and will return home w/spouse upon DC JET Coleman
--- NOTE | 2021-11-17 14:52 | PC.NURSE ---
patient Discharged. Patient teaching done at bedside with patient, many questions addressed and answered. Reviewed new medications and advised patient to go picker box operator rx's at [facility] right away. Patient is aware to cont. with PCP appt and with cardiology. VSS, patient escorted down to personal vehicle via wheelchair. Patient left in stable condition.
== END 2021-11-17 14:45 | disposition home or self-care (01) ==
LOC: ED 17:45 → AC 20:41
PROVIDERS: Admitting Provider Internal Medicine; Emergency Provider Emergency Medicine; PCP Family Medicine; Referring Provider Emergency Medicine; Visit Provider Internal Medicine
DX: I48.92 Unspecified atrial flutter (principal); I24.8 Other forms of acute ischemic heart disease; I10 Essential (primary) hypertension; N40.0 Benign prostatic hyperplasia without lower urinary tract symptoms; K21.9 Gastro-esophageal reflux disease without esophagitis; Z20.822 Contact with and (suspected) exposure to COVID-19
CPT/HCPCS: 36415; 71045; 80048; 80053; 82550; 82553; 83690; 83735; 83880; 84443; 84484; 85025; 85027; 85610; 85730; 87635; 93005; 93306; 96365; 96366; 96372; 96375; 96376; 99284; 99291; C9803; G0378; A9270; J1650; Q9957

== ENCOUNTER → 2022-02-06 12:04 | Outpatient (CLI) | payer MEDICARE, OTHER, SELFPAY ==
[2021-11-16 19:00] VITALS: BMI 33.9
[2022-02-06 13:06] LABS: Add Manual Diff / Slide Review NO; Basophils Absolute Auto 0 /uL (0-100); Basophils Percent Auto 0.4 % (0-2); Eosinophils Absolute Auto 100 /uL (0-450); Eosinophils Percent Auto 1.5 % (2-4); Hematocrit 38.9 % (41-53); Hemoglobin 13.1 g/dL (13.5-17.5); Lymphocytes Absolute Auto 1000 /uL (1100-4500); Lymphocytes Percent Auto 23.4 % (25-40); Mean Corpuscular HGB Conc 33.7 % (30-36); Mean Corpuscular Hemoglobin 32.7 PG (26-34); Mean Corpuscular Volume 96.9 fL (80-100); Monocytes Absolute Auto 700 /uL (0-900); Neutrophils Absolute Auto 2500 /uL (1500-7000); Neutrophils Percent Auto 57.7 % (50-75); Platelet Count 209 X10^3/uL (150-400); Red Blood Cell Count 4.01 X10^6/uL (4.5-5.9); Red Cell Distribution Width 15.4 % (11.6-14.8); White Blood Cell Count 4.3 X10^3/uL (4.5-11.0)
[2022-02-06 14:08] LABS: Hemoglobin A1C% w Est Avg Glu 5.9 % (4.0-6.0)
== END ==
PROVIDERS: PCP Family Medicine; Referring Provider Family Medicine; Visit Provider Family Medicine
DX: R73.03 Prediabetes (principal); D64.9 Anemia, unspecified
CPT/HCPCS: 36415; 83036; 85025

== ENCOUNTER → 2022-04-12 14:32 | Outpatient (CLI) | payer MEDICARE, OTHER, SELFPAY ==
[2022-02-08 11:15] VITALS: BMI 33.9
--- NOTE | 2022-04-12 14:33 | DI.US.S_ITS ---
PROCEDURE: US ABDOMEN LIMITED INDICATIONS: RIGHT PERIUBILICAL BULGE TECHNIQUE: Real-time focused scanning was performed of the abdomen, with image documentation. COMPARISON: None. FINDINGS: No right periumbilical hernia or other right ventral wall abnormality seen. IMPRESSION: No sonographic abnormality. Dictated by: Ernie CANTRELL Interpreted: Reza Gerardo MD on 04/12/2022 at 15:37 Approved by: Donald Gerardo M.D. on 04/19/2022 at 6:53
== END ==
PROVIDERS: PCP Family Medicine; Referring Provider Family Medicine; Visit Provider Family Medicine
DX: R10.815 Periumbilic abdominal tenderness (principal)
CPT/HCPCS: 76705

== ENCOUNTER → 2022-05-07 09:15 | Outpatient (CLI) | payer MEDICARE, OTHER, SELFPAY ==
[2022-02-08 11:15] VITALS: BMI 33.9
--- NOTE | 2022-05-07 09:17 | DI.US.S_ITS ---
PROCEDURE: US CAROTID DOPPLER BI INDICATIONS: STENOSIS TECHNIQUE: Color and pulse Doppler interrogation was performed of both carotid systems, with image documentation and velocity measurements. COMPARISON: [facility], , CAROTID ARTERY DOPPLER BILAT, 01/23/2017, 13:08. FINDINGS: Stenosis calculations are based on SRU (Society of Radiologists in Ultrasound) criteria. Right side: Brachial blood pressure: 126/61 mm Hg. Common carotid artery peak systolic velocity: 114 cm/sec. Internal carotid artery peak systolic velocity: 318 cm/sec, compared to 177 centimeters/second. Internal carotid artery end diastolic velocity: 60 cm/sec. External carotid artery peak systolic velocity: 145 cm/sec. ICA/CCA peak systolic ratio: 2.8 . Mata scale imaging description: Moderate to severe plaque at the bifurcation Percent internal carotid artery stenosis: 50-69% . Vertebral artery: Flow direction is antegrade. Left side: Brachial blood pressure: 127/52 mm Hg. Common carotid artery peak systolic velocity: 156 cm/sec. Internal carotid artery peak systolic velocity: 145 cm/sec compared to 106 centimeters/second. Internal carotid artery end diastolic velocity: 25 cm/sec. External carotid artery peak systolic velocity: 187 cm/sec. ICA/CCA peak systolic ratio: 0.9 . Mata scale imaging description: 50-69% Percent internal carotid artery stenosis: Mild plaque at the bifurcation . Vertebral artery: Flow direction is antegrade. IMPRESSION: 50-69% stenosis, progressive compared to prior exam. Dictated by: Mary Crawley M.D. on 05/07/2022 at 17:01 Approved by: Mary Crawley M.D. on 05/07/2022 at 17:02
== END ==
PROVIDERS: PCP Family Medicine; Referring Provider Family Medicine; Visit Provider Family Medicine
DX: I65.23 Occlusion and stenosis of bilateral carotid arteries (principal)
CPT/HCPCS: 93880

== ENCOUNTER → 2022-12-31 10:24 | Outpatient (CLI) | payer MEDICARE, OTHER, SELFPAY ==
[2022-02-08 11:15] VITALS: BMI 33.9
[2022-12-31 11:56] LABS: Add Manual Diff / Slide Review NO; Basophils Absolute Auto 0 /uL (0-100); Basophils Percent Auto 0.3 % (0-2); Eosinophils Absolute Auto 0 /uL (0-450); Eosinophils Percent Auto 0.2 % (2-4); Hematocrit 26.4 % (41-53); Hemoglobin 8.8 g/dL (13.5-17.5); Lymphocytes Absolute Auto 800 /uL (1100-4500); Lymphocytes Percent Auto 8.4 % (25-40); Mean Corpuscular HGB Conc 33.6 % (30-36); Mean Corpuscular Hemoglobin 31.5 PG (26-34); Mean Corpuscular Volume 93.9 fL (80-100); Monocytes Absolute Auto 800 /uL (0-900); Monocytes Percent Auto 7.8 % (3-14); Neutrophils Absolute Auto 8100 /uL (1500-7000); Neutrophils Percent Auto 83.3 % (50-75); Platelet Count 554 X10^3/uL (150-400); Red Blood Cell Count 2.81 X10^6/uL (4.5-5.9); Red Cell Distribution Width 14.7 % (11.6-14.8); White Blood Cell Count 9.7 X10^3/uL (4.5-11.0)
[2022-12-31 12:00] LABS: HEMOLYSIS < 15 (0-50); Iron 29 ug/dL (49-181)
[2022-12-31 12:11] LABS: Percent Iron Saturation 18 % (20-50); Total Iron Binding Capacity 163 ug/dL (261-462); Transferrin 123 mg/dL (206-381)
[2022-12-31 12:31] LABS: Ferritin 342 ng/mL (18-464)
== END ==
PROVIDERS: PCP Family Medicine; Referring Provider Family Medicine; Visit Provider Family Medicine
DX: D64.9 Anemia, unspecified (principal); R15.9 Full incontinence of feces
CPT/HCPCS: 36415; 82728; 83540; 83550; 85025

== ENCOUNTER → 2023-02-10 12:44 | Outpatient (CLI) | payer MEDICARE, OTHER, SELFPAY ==
[2022-02-08 11:15] VITALS: BMI 33.9
[2023-02-10 14:05] LABS: Add Manual Diff / Slide Review NO; Basophils Absolute Auto 0 /uL (0-100); Basophils Percent Auto 0.7 % (0-2); Eosinophils Absolute Auto 100 /uL (0-450); Eosinophils Percent Auto 1.9 % (2-4); Hematocrit 26.7 % (41-53); Lymphocytes Absolute Auto 1000 /uL (1100-4500); Lymphocytes Percent Auto 18.3 % (25-40); Mean Corpuscular HGB Conc 33.8 % (30-36); Mean Corpuscular Hemoglobin 31.1 PG (26-34); Mean Corpuscular Volume 92.2 fL (80-100); Monocytes Absolute Auto 600 /uL (0-900); Monocytes Percent Auto 11.7 % (3-14); Neutrophils Absolute Auto 3500 /uL (1500-7000); Neutrophils Percent Auto 67.4 % (50-75); Platelet Count 313 X10^3/uL (150-400); Red Cell Distribution Width 18.7 % (11.6-14.8); White Blood Cell Count 5.2 X10^3/uL (4.5-11.0)
[2023-02-10 14:40] LABS: Alanine Aminotransferase 14 IU/L (<50); Albumin 2.9 g/dL (3.5-5.0); Alkaline Phosphatase 101 U/L (38-126); Aspartate Aminotransferase 20 IU/L (17-59); Bilirubin Total 0.2 mg/dL (0.2-1.3); Blood Urea Nitrogen 12 mg/dL (9-20); Calcium 8.4 mg/dL (8.4-10.2); Carbon Dioxide 28 mmol/L (22-32); Chloride 106 mmol/L (98-107); Estimated Glomerular Filt Rate > 60 mL/min (>60); Globulin 2.9 g/dL (1.7-4.1); Glucose 96 mg/dL (80-110); HEMOLYSIS < 15 (0-50); Potassium 3.9 mmol/L (3.4-5.1); Sodium 139 mmol/L (137-145); Total Protein 5.8 g/dL (6.3-8.2)
[2023-02-10 17:43] LABS: C-Reactive Protein Quant 1.6 mg/dL (<1.0)
== END ==
PROVIDERS: PCP Family Medicine; Referring Provider Family Medicine; Visit Provider Family Medicine
DX: D64.9 Anemia, unspecified (principal)
CPT/HCPCS: 36415; 80053; 85025; 86140

== ENCOUNTER → 2023-03-31 10:59 | Outpatient (CLI) | payer MEDICARE, OTHER, SELFPAY ==
[2022-02-08 11:15] VITALS: BMI 33.9
[2023-03-31 14:14] LABS: Add Manual Diff / Slide Review NO; Basophils Absolute Auto 0 /uL (0-100); Basophils Percent Auto 0.5 % (0-2); Eosinophils Absolute Auto 100 /uL (0-450); Eosinophils Percent Auto 1.3 % (2-4); Hematocrit 28.3 % (41-53); Hemoglobin 9.6 g/dL (13.5-17.5); Lymphocytes Absolute Auto 800 /uL (1100-4500); Mean Corpuscular Hemoglobin 31.4 PG (26-34); Mean Corpuscular Volume 92.5 fL (80-100); Monocytes Absolute Auto 700 /uL (0-900); Monocytes Percent Auto 12.7 % (3-14); Neutrophils Absolute Auto 4200 /uL (1500-7000); Neutrophils Percent Auto 71.5 % (50-75); Platelet Count 357 X10^3/uL (150-400); Red Blood Cell Count 3.05 X10^6/uL (4.5-5.9); White Blood Cell Count 5.8 X10^3/uL (4.5-11.0)
[2023-03-31 14:59] LABS: Erythrocyte Sedimentation Rate 138 MM/HR (0-15)
[2023-03-31 15:00] LABS: Alanine Aminotransferase 13 IU/L (<50); Albumin 3.7 g/dL (3.5-5.0); Alkaline Phosphatase 74 U/L (38-126); Aspartate Aminotransferase 21 IU/L (17-59); BUN Creatinine Ratio 19.5 (6-22); Bilirubin Total 0.4 mg/dL (0.2-1.3); Blood Urea Nitrogen 17 mg/dL (9-20); Carbon Dioxide 30 mmol/L (22-32); Chloride 101 mmol/L (98-107); Estimated Glomerular Filt Rate > 60 mL/min (>60); Globulin 3.6 g/dL (1.7-4.1); Glucose 103 mg/dL (80-110); HEMOLYSIS < 15 (0-50); Potassium 3.8 mmol/L (3.4-5.1); Sodium 138 mmol/L (137-145); Total Protein 7.3 g/dL (6.3-8.2)
[2023-03-31 15:32] LABS: TSH w/ Reflex to FT4 1.49 uIU/mL (0.47-4.68)
[2023-04-02 06:05] LABS: C-Reactive Protein Quant 2.6 mg/dL (<1.0)
== END ==
PROVIDERS: PCP Family Medicine; Referring Provider Physician Assistant Medical; Visit Provider Physician Assistant Medical
DX: L65.9 Nonscarring hair loss, unspecified (principal); Z79.2 Long term (current) use of antibiotics; M86.18 Other acute osteomyelitis, other site
CPT/HCPCS: 36415; 80053; 84443; 85025; 85651; 86140

== ENCOUNTER → 2023-05-23 14:50 | Outpatient (CLI) | payer MEDICARE, OTHER, SELFPAY ==
[2023-04-22 11:59] VITALS: BMI 33.9
[2023-05-23 15:23] LABS: Add Manual Diff / Slide Review NO; Basophils Absolute Auto 0 /uL (0-100); Basophils Percent Auto 0.5 % (0-2); Eosinophils Absolute Auto 100 /uL (0-450); Eosinophils Percent Auto 1.7 % (2-4); Hematocrit 26.8 % (41-53); Lymphocytes Absolute Auto 900 /uL (1100-4500); Lymphocytes Percent Auto 19.4 % (25-40); Mean Corpuscular HGB Conc 33.6 % (30-36); Mean Corpuscular Hemoglobin 32.4 PG (26-34); Mean Corpuscular Volume 96.4 fL (80-100); Monocytes Absolute Auto 600 /uL (0-900); Monocytes Percent Auto 12.1 % (3-14); Neutrophils Absolute Auto 3100 /uL (1500-7000); Neutrophils Percent Auto 66.3 % (50-75); Platelet Count 269 X10^3/uL (150-400); Red Blood Cell Count 2.78 X10^6/uL (4.5-5.9); Red Cell Distribution Width 18.1 % (11.6-14.8); White Blood Cell Count 4.6 X10^3/uL (4.5-11.0)
[2023-05-23 15:43] LABS: Erythrocyte Sedimentation Rate 60 MM/HR (0-15)
[2023-05-23 16:37] LABS: HEMOLYSIS 36 (0-50); Iron 50 ug/dL (49-181)
[2023-05-23 16:41] LABS: C-Reactive Protein Quant < 0.5 mg/dL (<1.0)
[2023-05-23 16:48] LABS: Percent Iron Saturation 17 % (20-50); Total Iron Binding Capacity 300 ug/dL (261-462); Transferrin 214 mg/dL (206-381)
[2023-05-23 17:11] LABS: Ferritin 252 ng/mL (18-464)
== END ==
PROVIDERS: PCP Family Medicine; Referring Provider Physician Assistant Medical; Visit Provider Physician Assistant Medical
DX: Z79.2 Long term (current) use of antibiotics (principal); D50.9 Iron deficiency anemia, unspecified; M86.9 Osteomyelitis, unspecified; D64.9 Anemia, unspecified; I10 Essential (primary) hypertension; I25.10 Atherosclerotic heart disease of native coronary artery without angina pectoris; M54.17 Radiculopathy, lumbosacral region
CPT/HCPCS: 36415; 82728; 83540; 83550; 85025; 85651; 86140

== ENCOUNTER → 2023-06-30 10:57 | Outpatient (CLI) | payer MEDICARE, OTHER, SELFPAY ==
[2023-04-22 11:59] VITALS: BMI 33.9
[2023-06-30 11:31] LABS: Add Manual Diff / Slide Review NO; Basophils Absolute Auto 0 /uL (0-100); Basophils Percent Auto 0.6 % (0-2); Eosinophils Absolute Auto 100 /uL (0-450); Eosinophils Percent Auto 1.1 % (2-4); Hematocrit 28.6 % (41-53); Hemoglobin 9.6 g/dL (13.5-17.5); Lymphocytes Absolute Auto 800 /uL (1100-4500); Lymphocytes Percent Auto 17.4 % (25-40); Mean Corpuscular HGB Conc 33.6 % (30-36); Mean Corpuscular Hemoglobin 32.7 PG (26-34); Mean Corpuscular Volume 97.2 fL (80-100); Monocytes Absolute Auto 500 /uL (0-900); Monocytes Percent Auto 9.5 % (3-14); Neutrophils Absolute Auto 3500 /uL (1500-7000); Neutrophils Percent Auto 71.4 % (50-75); Platelet Count 255 X10^3/uL (150-400); Red Blood Cell Count 2.94 X10^6/uL (4.5-5.9); Red Cell Distribution Width 16.9 % (11.6-14.8); White Blood Cell Count 4.9 X10^3/uL (4.5-11.0)
[2023-06-30 11:45] LABS: Alanine Aminotransferase 16 IU/L (<50); Albumin 3.9 g/dL (3.5-5.0); Albumin Globulin Ratio 1.2 (1.0-2.8); Alkaline Phosphatase 49 U/L (38-126); Aspartate Aminotransferase 28 IU/L (17-59); BUN Creatinine Ratio 34.9 (6-22); Bilirubin Total 0.3 mg/dL (0.2-1.3); Blood Urea Nitrogen 29 mg/dL (9-20); Calcium 9.1 mg/dL (8.4-10.2); Carbon Dioxide 27 mmol/L (22-32); Chloride 103 mmol/L (98-107); Estimated Glomerular Filt Rate > 60 mL/min (>60); Globulin 3.2 g/dL (1.7-4.1); Glucose 103 mg/dL (80-110); HEMOLYSIS < 15 (0-50); Potassium 4.1 mmol/L (3.4-5.1); Sodium 137 mmol/L (137-145); Total Protein 7.1 g/dL (6.3-8.2)
[2023-06-30 11:48] LABS: Erythrocyte Sedimentation Rate 61 MM/HR (0-15)
[2023-06-30 11:49] LABS: C-Reactive Protein Quant 0.8 mg/dL (<1.0)
[2023-06-30 11:58] LABS: HEMOLYSIS < 15 (0-50); Iron 66 ug/dL (49-181)
[2023-06-30 12:09] LABS: Percent Iron Saturation 21 % (20-50); Total Iron Binding Capacity 309 ug/dL (261-462); Transferrin 210 mg/dL (206-381)
[2023-06-30 12:21] LABS: Ferritin 52 ng/mL (18-464)
== END ==
PROVIDERS: Internal Medicine Hematology & Oncology; PCP Family Medicine; Referring Provider Physician Assistant Medical; Visit Provider Physician Assistant Medical
DX: M46.20 Osteomyelitis of vertebra, site unspecified (principal); D50.9 Iron deficiency anemia, unspecified; M54.17 Radiculopathy, lumbosacral region; M54.16 Radiculopathy, lumbar region; M54.9 Dorsalgia, unspecified; Z79.2 Long term (current) use of antibiotics; Z79.899 Other long term (current) drug therapy
CPT/HCPCS: 36415; 80053; 82728; 83540; 83550; 85025; 85651; 86140; 99214

== ENCOUNTER → 2023-08-12 10:45 | Outpatient (CLI) | payer MEDICARE, OTHER, SELFPAY ==
[2023-04-22 11:59] VITALS: BMI 33.9
--- NOTE | 2023-08-12 10:46 | DI.RAD.S_ITS ---
Bone Density Report Name: TONIO BARROSO Age: 78 Sex: Male Ethnicity: White Date of : 1945 Indication: screening for osteoporosis; prior fracture; Referring Provider: SHYMA WILSON Study: Bone densitometry was performed. Exam Date: August 12, 2023 Accession number: [id number] Bone Density: Region BMD T-score Z-score Classification Femoral Neck (Left) 0.780 -0.6 0.4 Normal Total Hip (Left) 0.956 0.1 0.5 Normal Femoral Neck (Right) 0.742 -1.0 0.1 Normal Total Hip (Right) 0.881 -0.5 0.0 Normal Total Hip Mean 0.918 -0.2 0.3 Normal Total Forearm (Left) 0.633 1.0 0.8 Normal 1/3 Forearm (Left) 0.763 1.1 1.0 Normal UD Forearm (Left) 0.487 0.8 0.7 Normal World Health Organization criteria for BMD impression classify patients as: Normal (T-score at or above -1.0), Osteopenia (T-score between -1.0 and -2.5), or Osteoporosis (T-score at or below -2.5). 10-year Fracture Risk: FRAX not reported because: All T-scores for Spine Total, Hip Total, Femoral Neck at or above -1.0 Prior hip or vertebral fracture Impression: The patient has normal bone mass. The patient has risk factors, including: previous fracture. Discussion: INCREASED RISK OF FRACTURE DUE TO HISTORY OF LOW TRAUMA FRACTURE. The patient's previous fracture puts the patient at high risk of a future fracture. In untreated patients, the risk of osteoporotic fracture increases approximately two-fold for each 1.0 SD decrease in T-score. Low bone density is not the only risk factor for fracture; also consider factors such as patient's age, frailty or poor health, risk of falling, risk of injury, previous osteoporotic fracture, family history of osteoporosis, cigarette smoking, low body weight, etc. Not everyone with a low trauma fracture has osteoporosis; osteomalacia and other metabolic bone disorders should also be considered. Patients who have osteoporosis should be evaluated for specific diseases and conditions (secondary causes) that may cause or contribute to bone loss and fracture risk. National Osteoporosis Foundation (NOF) recommends pharmacologic intervention for patients with a prior low trauma hip or vertebral fracture regardless of BMD T-score. The patient should follow a healthful lifestyle (good nutrition with adequate calcium and vitamin D, and appropriate weight-bearing exercise). Follow-Up: Consider a repeat BMD and Vertebral Fracture Assessment (VFA) exam in 2 years or sooner if medically necessary, to reassess this patient's status. Reported by: BELKYS GARDINER MD on 08/12/2023 11:32:00 AM.
[2023-08-12 13:34] LABS: Appearance Urine UA CLEAR; Bilirubin Urine UA NEGATIVE (NEGATIVE); Color Urine UA YELLOW; Glucose Urine UA NEGATIVE (Negative); Ketones Urine UA NEGATIVE (NEGATIVE); Leukocyte Esterase Urine UA NEGATIVE (NEGATIVE); Nitrite Urine UA NEGATIVE (Negative); Occult Blood Urine UA NEGATIVE (Negative); Protein Urine UA NEGATIVE (Negative); Urobilinogen Urine UA 0.2 E.U./dL (0.2); pH Urine UA 5.5 (4.5-8.0)
[2023-08-12 13:42] LABS: Bacteria Urine None Seen; Culture Indicated Urine Cult Not Indicated; RBC Urine None Seen (0-5/HPF); Squamous Epithelial Cell Urine None Seen (0-5/HPF); WBC Urine None Seen (0-5/HPF)
== END ==
PROVIDERS: PCP Family Medicine; Referring Provider Family Medicine; Visit Provider Family Medicine
DX: S22.000A Wedge compression fracture of unspecified thoracic vertebra, initial encounter for closed fracture (principal); R10.9 Unspecified abdominal pain
CPT/HCPCS: 77080; 77081; 81001

== ENCOUNTER → 2023-10-17 11:33 | Outpatient (CLI) | payer MEDICARE, OTHER, SELFPAY ==
[2023-04-22 11:59] VITALS: BMI 33.9
[2023-10-17 12:48] LABS: Appearance Urine UA CLEAR; Bilirubin Urine UA NEGATIVE (NEGATIVE); Color Urine UA YELLOW; Glucose Urine UA NEGATIVE (Negative); Ketones Urine UA NEGATIVE (NEGATIVE); Leukocyte Esterase Urine UA 2+ (NEGATIVE); Nitrite Urine UA POSITIVE (Negative); Occult Blood Urine UA NEGATIVE (Negative); Protein Urine UA NEGATIVE (Negative); Urobilinogen Urine UA 0.2 E.U./dL (0.2)
[2023-10-17 12:58] LABS: Bacteria Urine Moderate (10-30); Culture Indicated Urine Specimen Cultured; RBC Urine 1-5/HPF (0-5/HPF); Squamous Epithelial Cell Urine 0-1 /HPF (0-5/HPF); WBC Urine 30-100/HPF (0-5/HPF)
== END ==
PROVIDERS: PCP Family Medicine; Referring Provider Family Medicine; Visit Provider Family Medicine
DX: R35.0 Frequency of micturition (principal); R39.15 Urgency of urination
CPT/HCPCS: 81001; 87077; 87086; 87186

== ENCOUNTER → 2023-12-03 11:35 | Outpatient (CLI) | payer MEDICARE, OTHER, SELFPAY ==
[2023-04-22 11:59] VITALS: BMI 33.9
[2023-12-03 12:16] LABS: Add Manual Diff / Slide Review NO; Basophils Absolute Auto 0 /uL (0-100); Basophils Percent Auto 0.4 % (0-2); Eosinophils Absolute Auto 100 /uL (0-450); Eosinophils Percent Auto 1.8 % (2-4); Hematocrit 32.5 % (41-53); Hemoglobin 10.9 g/dL (13.5-17.5); Lymphocytes Absolute Auto 900 /uL (1100-4500); Lymphocytes Percent Auto 20.9 % (25-40); Mean Corpuscular HGB Conc 33.4 % (30-36); Mean Corpuscular Volume 98.6 fL (80-100); Monocytes Absolute Auto 500 /uL (0-900); Neutrophils Absolute Auto 2800 /uL (1500-7000); Neutrophils Percent Auto 65.9 % (50-75); Platelet Count 225 X10^3/uL (150-400); White Blood Cell Count 4.2 X10^3/uL (4.5-11.0)
[2023-12-03 12:36] LABS: Alanine Aminotransferase 15 IU/L (<50); Albumin 3.9 g/dL (3.5-5.0); Albumin Globulin Ratio 1.2 (1.0-2.8); Alkaline Phosphatase 68 U/L (38-126); Aspartate Aminotransferase 23 IU/L (17-59); BUN Creatinine Ratio 28.4 (6-22); Bilirubin Total 0.5 mg/dL (0.2-1.3); Blood Urea Nitrogen 23 mg/dL (9-20); Carbon Dioxide 24 mmol/L (22-32); Chloride 109 mmol/L (98-107); Cholesterol 113 mg/dL (140-199); Estimated Glomerular Filt Rate > 60 mL/min (>60); Globulin 3.2 g/dL (1.7-4.1); Glucose 92 mg/dL (80-110); HDL Cholesterol 64 mg/dL (40-60); HEMOLYSIS < 15 (0-50); LDL Cholesterol Calculated 37 mg/dL (<100); Potassium 4.3 mmol/L (3.4-5.1); Sodium 141 mmol/L (137-145); Total Protein 7.1 g/dL (6.3-8.2); Triglycerides 62 mg/dL (35-150)
[2023-12-03 13:06] LABS: Prostate Specific Antigen Scrn < 0.064 ng/mL (0.1-4.0); TSH w/ Reflex to FT4 1.01 uIU/mL (0.47-4.68)
[2023-12-04 04:37] LABS: Apolipoprotein B 45 mg/dL (<90)
== END ==
PROVIDERS: PCP Family Medicine; Referring Provider Family Medicine; Visit Provider Family Medicine
DX: Z12.5 Encounter for screening for malignant neoplasm of prostate (principal); M43.25 Fusion of spine, thoracolumbar region; I25.10 Atherosclerotic heart disease of native coronary artery without angina pectoris; R73.03 Prediabetes; M47.816 Spondylosis without myelopathy or radiculopathy, lumbar region; C61 Malignant neoplasm of prostate; I10 Essential (primary) hypertension
CPT/HCPCS: 36415; 80053; 80061; 82172; 84443; 85025; G0103

== ENCOUNTER → 2023-12-15 10:44 | Outpatient (CLI) | payer MEDICARE, OTHER, SELFPAY ==
[2023-04-22 11:59] VITALS: BMI 33.9
[2023-12-15 15:18] LABS: Creatinine Urine Random 39.8 mg/dL; Microalbumin Urine Random < 0.6 mg/dL (0-1.6)
== END ==
LOC: LAB 10:45
PROVIDERS: PCP Family Medicine; Referring Provider Family Medicine; Visit Provider Family Medicine
DX: M43.25 Fusion of spine, thoracolumbar region (principal); M47.816 Spondylosis without myelopathy or radiculopathy, lumbar region; I25.10 Atherosclerotic heart disease of native coronary artery without angina pectoris; C61 Malignant neoplasm of prostate; R73.03 Prediabetes; I10 Essential (primary) hypertension
CPT/HCPCS: 82043; 82570

== ENCOUNTER → 2024-02-03 11:23 | Outpatient (CLI) | payer MEDICARE, OTHER, SELFPAY ==
[2023-04-22 11:59] VITALS: BMI 33.9
== END ==
LOC: LAB 11:24
PROVIDERS: PCP Family Medicine; Referring Provider Specialist; Visit Provider Specialist
DX: R97.20 Elevated prostate specific antigen [PSA] (principal)
CPT/HCPCS: 36415; 84153

== ENCOUNTER → 2024-05-18 11:08 | Outpatient (CLI) | payer MEDICARE, OTHER, SELFPAY ==
[2023-04-22 11:59] VITALS: BMI 33.9
--- NOTE | 2024-05-18 11:10 | DI.RAD.S_ITS ---
PROCEDURE: XR CHEST 2V INDICATIONS: Chronic Cough TECHNIQUE: 2 views of the chest were acquired. COMPARISON: [facility], , XR CHEST 1V, 11/15/2021, 17:30. FINDINGS: Surgical changes and devices: Orthopedic hardware of the partially visualized thoracolumbar spine. Cardiac monitoring device projects over the heart. Lungs and pleura: No pneumothorax. No large pleural effusion. Lungs appear grossly clear. Mediastinum: Cardiac silhouette appears slightly prominent. Bones and chest wall: Osteopenia, kyphotic deformity of the spine.. IMPRESSION: Enlarged cardiac silhouette Dictated by: Sin Hemphill M.D. on 05/18/2024 at 16:18 Approved by: Sin Hemphill M.D. on 05/18/2024 at 16:19
== END ==
PROVIDERS: PCP Family Medicine; Referring Provider Family Medicine; Visit Provider Family Medicine
DX: R05.3 Chronic cough (principal)
CPT/HCPCS: 71046

== ENCOUNTER → 2024-05-25 09:36 | Outpatient (CLI) | payer MEDICARE, OTHER, SELFPAY ==
[2023-04-22 11:59] VITALS: BMI 33.9
[2024-05-25 10:32] LABS: Add Manual Diff / Slide Review NO; Basophils Absolute Auto 0 /uL (0-100); Basophils Percent Auto 0.6 % (0-2); Eosinophils Absolute Auto 100 /uL (0-450); Eosinophils Percent Auto 1.5 % (2-4); Hematocrit 21.7 % (41-53); Hemoglobin 7.2 g/dL (13.5-17.5); Lymphocytes Absolute Auto 700 /uL (1100-4500); Lymphocytes Percent Auto 13.3 % (25-40); Mean Corpuscular HGB Conc 33.3 % (30-36); Mean Corpuscular Hemoglobin 31.8 PG (26-34); Mean Corpuscular Volume 95.5 fL (80-100); Monocytes Absolute Auto 600 /uL (0-900); Monocytes Percent Auto 11.5 % (3-14); Neutrophils Absolute Auto 3700 /uL (1500-7000); Neutrophils Percent Auto 73.1 % (50-75); Platelet Count 225 X10^3/uL (150-400); Red Blood Cell Count 2.27 X10^6/uL (4.5-5.9); Red Cell Distribution Width 14.8 % (11.6-14.8)
[2024-05-25 11:03] LABS: Alanine Aminotransferase 14 IU/L (<50); Albumin 3.6 g/dL (3.5-5.0); Albumin Globulin Ratio 1.2 (1.0-2.8); Alkaline Phosphatase 65 U/L (38-126); Aspartate Aminotransferase 23 IU/L (17-59); BUN Creatinine Ratio 36.1 (6-22); Bilirubin Total 0.5 mg/dL (0.2-1.3); Blood Urea Nitrogen 30 mg/dL (9-20); Calcium 8.6 mg/dL (8.4-10.2); Carbon Dioxide 21 mmol/L (22-32); Chloride 111 mmol/L (98-107); Estimated Glomerular Filt Rate > 60 mL/min (>60); Globulin 2.9 g/dL (1.7-4.1); Glucose 99 mg/dL (80-110); Lipase 102 U/L (23-300); Potassium 4.1 mmol/L (3.4-5.1); Sodium 140 mmol/L (137-145); Total Protein 6.5 g/dL (6.3-8.2)
[2024-05-25 11:06] LABS: NT-proBNP (BNP-Adult 18+) 228 pg/mL (<450)
[2024-05-25 11:34] LABS: HEMOLYSIS 24 (0-50)
[2024-05-25 12:33] LABS: Vitamin B12 > 1000 pg/mL (239-931)
== END ==
PROVIDERS: PCP Family Medicine; Referring Provider Family Medicine; Visit Provider Family Medicine
DX: R14.0 Abdominal distension (gaseous) (principal); R63.5 Abnormal weight gain; R60.0 Localized edema; I25.10 Atherosclerotic heart disease of native coronary artery without angina pectoris; D64.9 Anemia, unspecified
CPT/HCPCS: 36415; 80053; 82607; 83690; 83880; 85025

== ENCOUNTER → 2024-05-25 10:14 | Outpatient (CLI) | payer MEDICARE, OTHER, SELFPAY ==
[2023-04-22 11:59] VITALS: BMI 33.9
--- NOTE | 2024-05-25 10:16 | DI.CT.S_ITS ---
PROCEDURE: CT ABDOMEN PELVIS W CON INDICATIONS: Cardiac disease history, abd. bloat, low ext edema TECHNIQUE: After the administration of intravenous contrast, axial sections acquired from the lung bases to the pubic symphysis. Coronal and sagittal reformats were performed. For radiation dose reduction, the following was used: automated exposure control, adjustment of mA and/or kV according to patient size. COMPARISON: CT lumbar spine on 01/09/2023 FINDINGS: Image quality: Diagnostic. Lower Chest: Atelectasis along the dependent portions of the lower lungs. ABDOMEN: Liver: No solid mass. Tiny calcified focus within the right hepatic lobe may represent a calcified granuloma. Gallbladder: No radiopaque gallstones or wall thickening. Biliary ducts: No biliary dilation. Pancreas: No ductal dilation. Spleen: Size is within normal limits. Adrenal Glands: No adrenal nodules. Kidneys and Ureters: No hydronephrosis. No solid mass. No complex renal cystic lesion which requires follow up. Stomach and Bowel: Normal colonic caliber, without significant wall thickening. Colonic diverticulosis without diverticulitis. Peritoneum: No abnormal intraperitoneal fluid. No free air. Ventral Wall: No significant ventral hernia. Moderate-sized fat containing umbilical hernia. Abdominal Nodes: No retroperitoneal or mesenteric adenopathy by size criteria. Vessels: Aorta and inferior vena cava are normal in size. Diffuse coronary artery calcifications. Scattered arthrosclerotic plaques throughout the abdominal aorta. Arthrosclerotic plaques at the base of the celiac artery, SMA and bilateral renal arteries the. PELVIS: Pelvic Organs: The prostate gland is enlarged. Hyperdense foci are throughout the prostate gland.. Bladder: No bladder wall thickening, accounting for underdistention. Pelvic Nodes: No enlarged lymph nodes. Miscellaneous: No inguinal hernias are seen. Bones: No aggressive osseous abnormality. Thoracic to iliac posterior spinal fusion. Intervertebral disc spacer at L2-L3. Bridging anterior osteophytes in the lower thoracic spine. Compression deformity along the inferior endplate of T12 new since 2022. IMPRESSION: 1. No acute intra-abdominal and intrapelvic process. 2. There is a compression deformity of the inferior endplate of T12 that is of indeterminate chronicity but new since 01/09/2023. Correlate for point tenderness or consider an MRI. 3. Coronary artery calcifications. Dictated by: Tristan Paiz M.D. on 05/25/2024 at 16:36 Approved by: Tristan Paiz M.D. on 05/25/2024 at 16:58
== END ==
PROVIDERS: PCP Family Medicine; Referring Provider Family Medicine; Visit Provider Family Medicine
DX: R14.0 Abdominal distension (gaseous) (principal); R63.5 Abnormal weight gain; K42.9 Umbilical hernia without obstruction or gangrene; I25.10 Atherosclerotic heart disease of native coronary artery without angina pectoris; I70.0 Atherosclerosis of aorta; N40.0 Benign prostatic hyperplasia without lower urinary tract symptoms; R60.0 Localized edema; D64.9 Anemia, unspecified; M43.8X4 Other specified deforming dorsopathies, thoracic region; Z98.1 Arthrodesis status
CPT/HCPCS: 36415; 74177; 80053; 82607; 83690; 83880; 85025; Q9967

== ENCOUNTER → 2024-09-16 10:30 | Outpatient (CLI) | payer MEDICARE, OTHER, SELFPAY ==
[2024-09-03 13:03] VITALS: BMI 33.9
== END ==
PROVIDERS: Family Provider Family Medicine; PCP Family Medicine; Visit Provider Urology
DX: C61 Malignant neoplasm of prostate (principal); N32.81 Overactive bladder; Z87.440 Personal history of urinary (tract) infections
CPT/HCPCS: 81002; 87077; 87086; 87186; 99214

== ENCOUNTER → 2024-11-11 14:48 | Outpatient (CLI) | payer MEDICARE, OTHER, SELFPAY ==
[2024-09-03 13:03] VITALS: BMI 33.9
[2024-11-11 15:36] LABS: Add Manual Diff / Slide Review NO; Basophils Absolute Auto 0 /uL (0-100); Basophils Percent Auto 0.8 % (0-2); Eosinophils Absolute Auto 200 /uL (0-450); Eosinophils Percent Auto 3.6 % (2-4); Hemoglobin 10.5 g/dL (13.5-17.5); Lymphocytes Absolute Auto 900 /uL (1100-4500); Lymphocytes Percent Auto 16.7 % (25-40); Mean Corpuscular HGB Conc 33.7 % (30-36); Mean Corpuscular Hemoglobin 32.7 PG (26-34); Monocytes Absolute Auto 600 /uL (0-900); Monocytes Percent Auto 11.3 % (3-14); Neutrophils Absolute Auto 3500 /uL (1500-7000); Neutrophils Percent Auto 67.6 % (50-75); Platelet Count 226 X10^3/uL (150-400); Red Cell Distribution Width 18.6 % (11.6-14.8); White Blood Cell Count 5.2 X10^3/uL (4.5-11.0)
[2024-11-11 15:57] LABS: Alanine Aminotransferase 25 IU/L (<50); Albumin 3.9 g/dL (3.5-5.0); Albumin Globulin Ratio 1.4 (1.0-2.8); Alkaline Phosphatase 59 U/L (38-126); Aspartate Aminotransferase 30 IU/L (17-59); BUN Creatinine Ratio 18.1 (6-22); Bilirubin Total 0.3 mg/dL (0.2-1.3); Blood Urea Nitrogen 17 mg/dL (9-20); Calcium 9.2 mg/dL (8.4-10.2); Carbon Dioxide 26 mmol/L (22-32); Chloride 106 mmol/L (98-107); Cholesterol 95 mg/dL (140-199); Estimated Glomerular Filt Rate > 60 mL/min (>60); Globulin 2.7 g/dL (1.7-4.1); Glucose 94 mg/dL (80-110); HDL Cholesterol 48 mg/dL (40-60); HEMOLYSIS < 15 (0-50); LDL Cholesterol Calculated 35 mg/dL (<100); Potassium 4.7 mmol/L (3.4-5.1); Sodium 139 mmol/L (137-145); Total Protein 6.6 g/dL (6.3-8.2); Triglycerides 59 mg/dL (35-150)
[2024-11-11 16:25] LABS: TSH w/ Reflex to FT4 1.49 uIU/mL (0.47-4.68)
[2024-11-11 16:26] LABS: Prostate Specific Antigen < 0.064 ng/mL (0.10-4.00)
== END ==
PROVIDERS: Family Provider Family Medicine; PCP Family Medicine; Referring Provider Family Medicine; Visit Provider Family Medicine
DX: Z00.00 Encounter for general adult medical examination without abnormal findings (principal); C61 Malignant neoplasm of prostate; I25.10 Atherosclerotic heart disease of native coronary artery without angina pectoris
CPT/HCPCS: 36415; 80053; 80061; 84153; 84443; 85025

== ENCOUNTER → 2025-04-13 15:04 | Outpatient (CLI) | payer MEDICARE, OTHER, SELFPAY ==
[2024-09-03 13:03] VITALS: BMI 33.9
[2025-04-13 21:05] LABS: Magnesium 2.0 mg/dL (1.6-2.3)
[2025-04-13 21:35] LABS: Thyroid Stimulating Hormone 1.08 uIU/mL (0.47-4.68)
== END ==
PROVIDERS: PCP Family Medicine; Referring Provider Nurse Practitioner; Visit Provider Nurse Practitioner
DX: Z79.899 Other long term (current) drug therapy (principal); Z51.81 Encounter for therapeutic drug level monitoring
CPT/HCPCS: 36415; 83735; 84443

== ENCOUNTER → 2025-08-11 15:08 | Outpatient (CLI) | payer MEDICARE, OTHER, SELFPAY ==
[2024-09-03 13:03] VITALS: BMI 33.9
--- NOTE | 2025-08-11 15:09 | DI.CT.S_ITS ---
PROCEDURE: CT ABDOMEN PELVIS W CON INDICATIONS: Epigastric and RUQ pain TECHNIQUE: After the administration of intravenous contrast, axial sections acquired from the lung bases to the pubic symphysis. Coronal and sagittal reformats were performed. For radiation dose reduction, the following was used: automated exposure control, adjustment of mA and/or kV according to patient size. COMPARISON: [facility], CT, CT ABDOMEN PELVIS W CON, 05/25/2024, 11:12. FINDINGS: Image quality: Diagnostic. Lower Chest: Senescent fibrosis. Cardiomegaly. ABDOMEN: Liver: No solid mass. Gallbladder: No radiopaque gallstones or wall thickening. Biliary ducts: No biliary dilation. Pancreas: No ductal dilation. Spleen: Size is within normal limits. Adrenal Glands: No adrenal nodules. Kidneys and Ureters: No hydronephrosis. No solid mass. No complex renal cystic lesion which requires follow up. Stomach and Bowel: Mild small bowel wall thickening with borderline distension. No discernible transition point. Mucosal hypertrophy is present. Normal appendix. Colonic diverticulosis without evidence of diverticulitis. Peritoneum: Small volume free fluid, reactive. No free air. Ventral Wall: Small umbilical hernia containing fat. Abdominal Nodes: No retroperitoneal or mesenteric adenopathy by size criteria. Vessels: Aorta and inferior vena cava are normal in size. PELVIS: Pelvic Organs: Unremarkable. Bladder: No bladder wall thickening, accounting for underdistention. Pelvic Nodes: No enlarged lymph nodes. Miscellaneous: No inguinal hernias are seen. Bones: No aggressive osseous abnormality. Extensive surgical fusion of the thoracolumbar spine and pelvis. IMPRESSION: Suspected enteritis, with borderline bowel distension, bowel wall thickening and mucosal hypertrophy. No discernible transition point to suggest bowel obstruction. Dictated by: Carlo Peters M.D. on 08/11/2025 at 16:34 Approved by: Carlo Peters M.D. on 08/11/2025 at 16:39
[2025-08-11 15:22] LABS: Add Manual Diff / Slide Review NO; Hematocrit 35.9 % (41-53); Hemoglobin 12.2 g/dL (13.5-17.5); Lymphocytes Absolute Auto 700 /uL (1100-4500); Mean Corpuscular HGB Conc 34.0 % (30-36); Mean Corpuscular Hemoglobin 33.9 PG (26-34); Mean Corpuscular Volume 99.9 fL (80-100); Platelet Count 219 X10^3/uL (150-400)
[2025-08-11 15:35] LABS: Alanine Aminotransferase 19 IU/L (<50); Albumin 4.4 g/dL (3.5-5.0); Albumin Globulin Ratio 1.4 (1.0-2.8); Alkaline Phosphatase 50 U/L (38-126); Blood Urea Nitrogen 23 mg/dL (9-20); Calcium 9.5 mg/dL (8.4-10.2); Carbon Dioxide 27 mmol/L (22-32); Chloride 104 mmol/L (98-107); Estimated Glomerular Filt Rate > 60 mL/min (>60); Globulin 3.2 g/dL (1.7-4.1); Glucose 113 mg/dL (70-99); HEMOLYSIS 42 (0-50); Lipase 203 U/L (23-300); Potassium 4.3 mmol/L (3.4-5.1); Sodium 139 mmol/L (137-145); Total Protein 7.6 g/dL (6.3-8.2)
[2025-08-11 15:46] LABS: Troponin I < 0.012 ng/mL (0.01-0.034)
== END ==
PROVIDERS: PCP Family Medicine; Referring Provider Family Medicine; Visit Provider Family Medicine
DX: R10.11 Right upper quadrant pain (principal); R10.13 Epigastric pain; D50.9 Iron deficiency anemia, unspecified; I25.10 Atherosclerotic heart disease of native coronary artery without angina pectoris; I51.7 Cardiomegaly; K57.90 Diverticulosis of intestine, part unspecified, without perforation or abscess without bleeding; K42.9 Umbilical hernia without obstruction or gangrene; Z98.1 Arthrodesis status
CPT/HCPCS: 36415; 74177; 80053; 83690; 84484; 85025; Q9967

== ENCOUNTER → 2025-09-26 12:02 | Outpatient (CLI) | payer MEDICARE, OTHER, SELFPAY ==
[2024-09-03 13:03] VITALS: BMI 33.9
[2025-09-26 13:56] LABS: Magnesium 2.3 mg/dL (1.6-2.3)
[2025-09-26 14:23] LABS: Thyroid Stimulating Hormone 1.31 uIU/mL (0.47-4.68)
== END ==
PROVIDERS: PCP Family Medicine; Referring Provider Nurse Practitioner; Visit Provider Nurse Practitioner
DX: Z51.81 Encounter for therapeutic drug level monitoring (principal); Z79.899 Other long term (current) drug therapy
CPT/HCPCS: 36415; 83735; 84443